=== PATIENT | male | born 1975 | race Caucasian/White ===

== ENCOUNTER 2016-05-28 13:55 | Emergency (ER) | payer OTHER ==
[2016-05-28] MEDS ORDERED: NS 0.9% 1000 ML* 1,000 ML IV ONE (14:37)
--- NOTE | 2016-05-28 14:54 | RAD ---
HISTORY: Chest pain COMPARISONS: January 10, 2015 VIEWS:1: Single frontal portable view of the chest at 2:30 PM FINDINGS: LINES AND TUBES: None. CARDIOMEDIASTINAL SILHOUETTE: The cardiomediastinal silhouette is normal for portable technique. PLEURA: The costophrenic angles are sharp. No pleural abnormalities are noted. LUNG PARENCHYMA: The lungs are clear. ABDOMEN: The upper abdomen is clear. There is no subphrenic gas. BONES AND SOFT TISSUES: No bone or soft tissue abnormalities are noted. IMPRESSION: NO ACTIVE CARDIOPULMONARY DISEASE.
[2016-05-28 14:59] LABS: Hematocrit 44 % (42-52); Mean Corpuscular HGB Conc 34 g/dl (31-36); Mean Corpuscular Hemoglobin 32 pg (27-31); Mean Corpuscular Volume 94 fL (80-94); Mean Platelet Volume 9 um3 (7.4-10.4); Red Blood Count 4.69 10^6/ul (4.0-5.4); Red Cell Distribution Width 13 % (10.5-15); White Blood Count 8.2 10^3/ul (3.5-10.8)
[2016-05-28 15:04] LABS: Urine Bilirubin Negative (Negative); Urine Glucose Negative (Negative); Urine Nitrite Negative (Negative)
[2016-05-28 15:13] LABS: Albumin 4.1 g/dL (3.2-5.2); C Reactive Protein 1.22 mg/L (< 5.00); Calcium 9.6 mg/dL (8.6-10.3); EGFR African American 113.2 (>60); Globulin 2.6 g/dL (2-4); Potassium 4.2 mmol/L (3.5-5.0); Total Bilirubin 0.6 mg/dL (0.2-1.0); Total Protein 6.7 g/dL (6.4-8.9)
[2016-05-28 15:15] LABS: Troponin I 0.02 ng/mL (<0.04)
[2016-05-28] MEDS ORDERED: HYDROcodone/ACETAMIN 5-325 MG* 1 TAB PO ONE (15:31)
[2016-05-28 15:55] VITALS: BP 127/85
[2016-05-28 15:57] LABS: TSH (Thyroid Stimulating Horm) 2.15 mcIU/mL (0.34-5.60)
--- NOTE | 2016-05-28 22:52 | ED ---
Gunner Shaikh Matthew, scribed for Collins Cross MD on 05/28/16 at 1523 . HPI Chest Pain - HPI Summary HPI Summary: A 40 y/o male presents to the ED with gradually worsening, constant left sided chest pain since a week ago. The pain is rated 2/10 in severity and he describes the pain as musculoskeletal. The pain started when the patient was changing the oil in his friend's car, and he felt a pop in his chest. He states that it felt like he pulled a muscle. Associated symptoms include headache, lightheadedness, dizziness, and SOB. The chest pain is worse with movement and touch. The patient took 400mg of ibuprofen last night for the pain. - History of Current Complaint Chief Complaint: EDChestWallPain Time Seen by Provider: 05/28/16 15:21 Hx Obtained From: Patient Onset/Duration: Started Weeks Ago, Atraumatic, Still Present Timing: Constant Initial Severity: Mild Current Severity: Mild Pain Intensity: 2 Pain Scale Used: 0-10 Numeric Chest Pain Location: Left Lateral Chest Pain Radiates: No Aggravating Factor(s): Movement Associated Signs and Symptoms: Positive: Chest Pain, Headaches, Dizziness, Shortness of Breath, Lightheadedness - Allergy/Home Medications Allergies/Adverse Reactions: Allergies Allergy/AdvReac Type Severity Reaction Status Date / Time No Known Allergies Allergy Verified 01/10/15 17:54 PMH/Surg Hx/FS Hx/Imm Hx Endocrine/Hematology History: Denies: Hx Diabetes Cardiovascular History: 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 open heart surgery as an for transposition of the great vessel ( NO IMPLANTS); Hx Anesthesia Reactions: No Infectious Disease History: No Infectious Disease History: Denies: Traveled Outside the [place] in Last 30 Days - Family History Known Family History: Negative: Cardiac Disease - Social History Alcohol Use: Weekly Alcohol Amount: LAST NIGHT Substance Use Type: Reports: None Hx Tobacco Use: Yes Smoking Status (MU): Current Every Day Smoker Type: Cigarettes Amount Used/How Often: 1/2 ppd Have You Smoked in the Last Year: Yes Review of Systems Constitutional: Negative Eyes: Negative ENT: Negative Positive: Chest Pain Positive: Shortness Of Breath Gastrointestinal: Negative Genitourinary: Negative Musculoskeletal: Negative Skin: Negative Neurological: Other - Dizziness, lightheadedness Positive: Headache Psychological: Normal All Other Systems Reviewed And Are Negative: Yes Physical Exam Triage Information Reviewed: Yes Vital Signs On Initial Exam: Initial Vitals Temp Pulse Resp BP Pulse Ox 98.6 F 82 20 124/89 98 05/28/16 13:58 05/28/16 13:58 05/28/16 13:58 05/28/16 13:58 05/28/16 13:58 Vital Signs Reviewed: Yes Appearance: Positive: Well-Appearing, No Pain Distress Skin: Positive: Warm, Skin Color Reflects Adequate Perfusion, Dry Head/Face: Positive: Normal Head/Face Inspection Eyes: Positive: Normal ENT: Positive: Normal ENT inspection Neck: Positive: Supple, Nontender Respiratory/Lung Sounds: Positive: Clear to Auscultation, Breath Sounds Present Cardiovascular: Positive: RRR - hyperkinetic heart sounds Abdomen Description: Positive: Nontender, Soft Bowel Sounds: Positive: Present Musculoskeletal: Positive: Normal Neurological: Positive: Normal Psychiatric: Positive: Normal, Affect/Mood Appropriate - José Coma Scale Coma Scale Total: 15 Diagnostics - Vital Signs Vital Signs Temp Pulse Resp BP Pulse Ox 05/28/16 15:00 66 17 127/71 97 05/28/16 14:30 71 15 114/68 96 05/28/16 14:13 74 17 96 05/28/16 14:10 121/73 05/28/16 13:58 98.6 F 82 20 124/89 98 - Laboratory Lab Results: Lab Results 05/28/16 05/28/16 05/28/16 Range/Units 14:45 14:45 14:45 WBC 8.2 (3.5-10.8) 10^3/ul RBC 4.69 (4.0-5.4) 10^6/ul Hgb 15.0 (14.0-18.0) g/dl Hct 44 (42-52) % MCV 94 (80-94) fL MCH 32 H (27-31) pg MCHC 34 (31-36) g/dl RDW 13 (10.5-15) % Plt Count 215 (150-450) 10^3/ul MPV 9 (7.4-10.4) um3 Neut % (Auto) 73.9 (38-83) % Lymph % (Auto) 13.8 L (25-47) % [place] % (Auto) 7.3 (1-9) % Eos % (Auto) 3.0 (0-6) % Baso % (Auto) 2.0 (0-2) % Absolute Neuts (auto) 6.1 (1.5-7.7) 10^3/ul Absolute Lymphs (auto) 1.1 (1.0-4.8) 10^3/ul Absolute Monos (auto) 0.6 (0-0.8) 10^3/ul Absolute Eos (auto) 0.2 (0-0.6) 10^3/ul Absolute Basos (auto) 0.2 (0-0.2) 10^3/ul Absolute Nucleated RBC 0 10^3/ul Nucleated RBC % 0 INR (Anticoag Therapy) 0.91 (0.89-1.11) APTT 28.1 (26.0-36.3) seconds D-Dimer, Quantitative < 200 (Less Than 230) ng/mL Sodium 137 (133-145) mmol/L Potassium 4.2 (3.5-5.0) mmol/L Chloride 106 (101-111) mmol/L Carbon Dioxide 26 (22-32) mmol/L Anion Gap 5 (2-11) mmol/L BUN 15 (6-24) mg/dL Creatinine 0.94 (0.67-1.17) mg/dL Est GFR ( Amer) 113.2 (>60) Est GFR (Non-Af Amer) 88.0 (>60) BUN/Creatinine Ratio 16.0 (8-20) Glucose 97 (70-100) mg/dL Lactic Acid (0.5-2.0) mmol/L Calcium 9.6 (8.6-10.3) mg/dL Magnesium 2.0 (1.9-2.7) mg/dL Total Bilirubin 0.60 (0.2-1.0) mg/dL AST 13 (13-39) U/L ALT 18 (7-52) U/L Alkaline Phosphatase 44 (34-104) U/L Total Creatine Kinase 64 (10-223) U/L CK-MB (CK-2) 1.6 (0.6-6.3) ng/mL Troponin I 0.02 (<0.04) ng/mL C-Reactive Protein 1.22 (< 5.00) mg/L B-Natriuretic Peptide ( - 100) pg/mL Total Protein 6.7 (6.4-8.9) g/dL Albumin 4.1 (3.2-5.2) g/dL Globulin 2.6 (2-4) g/dL Albumin/Globulin Ratio 1.6 (1-3) Lipase 15 (11.0-82.0) U/L TSH Pending Urine Color Urine Appearance Urine pH (5-9) Ur Specific [place] (1.010-1.030) Urine Protein (Negative) Urine Ketones (Negative) Urine Blood (Negative) Urine Nitrate (Negative) Urine Bilirubin (Negative) Urine Urobilinogen (Negative) Ur Leukocyte Esterase (Negative) Urine Glucose (Negative) Urine Ascorbic Acid (Negative) 05/28/16 05/28/16 05/28/16 Range/Units 14:45 14:45 14:55 WBC (3.5-10.8) 10^3/ul RBC (4.0-5.4) 10^6/ul Hgb (14.0-18.0) g/dl Hct (42-52) % MCV (80-94) fL MCH (27-31) pg MCHC (31-36) g/dl RDW (10.5-15) % Plt Count (150-450) 10^3/ul MPV (7.4-10.4) um3 Neut % (Auto) (38-83) % Lymph % (Auto) (25-47) % [place] % (Auto) (1-9) % Eos % (Auto) (0-6) % Baso % (Auto) (0-2) % Absolute Neuts (auto) (1.5-7.7) 10^3/ul Absolute Lymphs (auto) (1.0-4.8) 10^3/ul Absolute Monos (auto) (0-0.8) 10^3/ul Absolute Eos (auto) (0-0.6) 10^3/ul Absolute Basos (auto) (0-0.2) 10^3/ul Absolute Nucleated RBC 10^3/ul Nucleated RBC % INR (Anticoag Therapy) (0.89-1.11) APTT (26.0-36.3) seconds D-Dimer, Quantitative (Less Than 230) ng/mL Sodium (133-145) mmol/L Potassium (3.5-5.0) mmol/L Chloride (101-111) mmol/L Carbon Dioxide (22-32) mmol/L Anion Gap (2-11) mmol/L BUN (6-24) mg/dL Creatinine (0.67-1.17) mg/dL Est GFR ( Amer) (>60) Est GFR (Non-Af Amer) (>60) BUN/Creatinine Ratio (8-20) Glucose (70-100) mg/dL Lactic Acid 1.0 (0.5-2.0) mmol/L Calcium (8.6-10.3) mg/dL Magnesium (1.9-2.7) mg/dL Total Bilirubin (0.2-1.0) mg/dL AST (13-39) U/L ALT (7-52) U/L Alkaline Phosphatase (34-104) U/L Total Creatine Kinase (10-223) U/L CK-MB (CK-2) (0.6-6.3) ng/mL Troponin I (<0.04) ng/mL C-Reactive Protein (< 5.00) mg/L B-Natriuretic Peptide 133 H ( - 100) pg/mL Total Protein (6.4-8.9) g/dL Albumin (3.2-5.2) g/dL Globulin (2-4) g/dL Albumin/Globulin Ratio (1-3) Lipase (11.0-82.0) U/L TSH Urine Color Yellow Urine Appearance Clear Urine pH 5.0 (5-9) Ur Specific [place] 1.021 (1.010-1.030) Urine Protein Negative (Negative) Urine Ketones Negative (Negative) Urine Blood Negative (Negative) Urine Nitrate Negative (Negative) Urine Bilirubin Negative (Negative) Urine Urobilinogen Negative (Negative) Ur Leukocyte Esterase Negative (Negative) Urine Glucose Negative (Negative) Urine Ascorbic Acid * H (Negative) Result Diagrams: 05/28/16 14:45 05/28/16 14:45 Lab Statement: Any lab studies that have been ordered have been reviewed, and results considered in the medical decision making process. - Radiology CXR Xray Interpretation: No Acute Changes - No Active Cardiopulonary disease Radiology Interpretation Completed By: Radiologist - EKG 14:00 Cardiac Rate: NL - 75 bpm EKG Rhythm: Sinus Rhythm EKG Interpretation: ST depression in anterior leads EKG Comparison: No Significant Change - 01/10/15 Chest Pain Course/Dx - Course Assessment/Plan: A 40 y/o male presents to the ED with gradually worsening, constant left sided chest pain since a week ago. Labs were reviewed and the troponin was 0.02. CXR shows no active cardiopulmonary disease. EKG shows NSR at [address] depression in the anterior leads and no significant change since 01/10/15. The patient will be discharged home and follow-up with his PCP. - Diagnoses Provider Diagnoses: Chest wall pain Discharge - Discharge Plan Condition: Stable Disposition: HOME Prescriptions: HYDROcodone/ACETAMIN 5-325 MG* [[place] 5-325 TAB*] 1 tab PO Q6H PRN #20 tab MDD 4 PRN Reason: Pain Patient Education Materials: Hydrocodone/Acetaminophen (By mouth), Chest Wall Pain (ED) Referrals: Taya Singh MD [Primary Care Provider] - 2 Days Additional Instructions: Please follow-up with your primary care physician. The documentation as recorded by the Gunner erazo Matthew accurately reflects the service I personally performed and the decisions made by , Collins Cross MD.
== END 2016-05-28 15:54 | disposition home or self-care (01) ==
LOC: ED 13:55
DX: R07.89 Other chest pain (principal); I27.2 Other secondary pulmonary hypertension; Q24.9 Congenital malformation of heart, unspecified; X58.XXXA Exposure to other specified factors, initial encounter; Y92.9 Unspecified place or not applicable; F17.210 Nicotine dependence, cigarettes, uncomplicated
CPT/HCPCS: 36415; 71010; 80053; 81003; 82550; 82553; 83605; 83690; 83735; 83880; 84443; 84484; 85025; 85379; 85610; 85730; 86140; 93005; 96360; 99283

== ENCOUNTER 2016-07-03 09:43 | Inpatient (IN) | payer OTHER ==
[2016-07-03 10:27] LABS: Add Diff/Slide Review? Slide Review Added; Comments Flag Yes; Hematocrit 45 % (42-52); Hemoglobin 15.3 g/dl (14.0-18.0); Mean Corpuscular HGB Conc 34 g/dl (31-36); Mean Corpuscular Hemoglobin 32 pg (27-31); Mean Corpuscular Volume 93 fL (80-94); Mean Platelet Volume 8 um3 (7.4-10.4); Red Blood Count 4.81 10^6/ul (4.0-5.4); Red Cell Distribution Width 13 % (10.5-15); White Blood Count 7.2 10^3/ul (3.5-10.8)
[2016-07-03] MEDS: NS 0.9% 1000 ML* 2,000 ML IV ONE ×2 (10:30→13:19)
[2016-07-03 11:07] LABS: BUN/Creatinine Ratio 14.2 (8-20); C Reactive Protein 20.23 mg/L (< 5.00); Calcium 9.1 mg/dL (8.6-10.3); EGFR African American 91.5 (>60); EGFR Non-African American 71.2 (>60); Globulin 2.8 g/dL (2-4); Total Bilirubin 0.4 mg/dL (0.2-1.0); Total Protein 6.8 g/dL (6.4-8.9)
--- NOTE | 2016-07-03 11:08 | RAD ---
INDICATION: Tachycardia. History of congenital heart disease COMPARISON: May 28, 2016 TECHNIQUE: An AP portable view obtained at 1043 hours is submitted. FINDINGS: Bones/Soft Tissues: There are no acute bony findings. Cardiomediastinal: The cardiomediastinal silhouette is normal. Lungs: There are no infiltrates. Pleura: There are no pleural effusions. Other: None IMPRESSION: NO ACTIVE DISEASE
[2016-07-03 11:15] LABS: TSH (Thyroid Stimulating Horm) 2.43 mcIU/mL (0.34-5.60)
[2016-07-03 12:05] LABS: Magnesium 1.9 mg/dL (1.9-2.7); Potassium 4.4 mmol/L (3.5-5.0)
[2016-07-03] MEDS ORDERED: Ondansetron INJ* 2 MG/ML VIAL IV ONE (13:10)
[2016-07-03] MEDS ORDERED: Ketorolac INJ* 30 MG/ML 1 ML VIAL IV ONE (13:10)
[2016-07-03] MEDS ORDERED: Nicotine Inhaler* 10 MG AMP INH PRN (15:28)
[2016-07-03] MEDS ORDERED: Nicotine GUM* 2 MG PO PRN (15:28)
[2016-07-03] MEDS: NS 0.9% 1000 ML* 1,000 ML IV SCH (15:41)
--- NOTE | 2016-07-03 16:01 | ED ---
Gunner Shaikh Matthew, scribed for Ismael Ramirez MD on 07/03/16 at 1156 . Dizziness - HPI Summary HPI Summary: A 40 y/o male presents to the ED with dizziness/lightheadedness since hours ago. The patient has been feeling gradually worse since 2 days ago. The patient went to his PCP this morning and was referred to the ED. Associated symptoms include fever, chills, cough, right ear pain, chest congestion, SOB, headache, and diffuse body aches. The patient denies chest pain. He takes Lexapro and medication for HLD. The patient states that his right foot is falling asleep, but also states this happens chronically especially when he's ill. 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 - History Of Current Complaint Chief Complaint: EDDizziness Stated Complaint: RAPID HEART RATE Time Seen by Provider: 07/03/16 10:09 Hx Obtained From: Patient Onset/Duration: Still Present Timing: Constant Severity Initially: Moderate Severity Currently: Moderate Character: Lightheaded, Dizzy Associated Signs And Symptoms: Positive: SOB, Fever, Chills, Other: - Chest Congestion, Headache, Diffuse body aches, Right Ear Pain. 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 open heart surgery as an for transposition of the great vessel ( NO IMPLANTS); Hx Anesthesia Reactions: No Infectious Disease History: No Infectious Disease History: Denies: Traveled Outside the [place] in Last 30 Days - Family History Known Family History: Negative: Cardiac Disease - Social History Alcohol Use: Weekly Alcohol Amount: LAST NIGHT Substance Use Type: Reports: None Hx Tobacco Use: Yes Smoking Status (MU): Current Every Day Smoker Type: Cigarettes Amount Used/How Often: 1/2 ppd Have You Smoked in the Last Year: Yes Review of Systems Positive: Fever, Chills Eyes: Negative ENT: Negative Cardiovascular: Negative Negative: Chest Pain Respiratory: Other - Chest Congestion Positive: Cough Gastrointestinal: Negative Genitourinary: Negative Positive: Myalgia - Diffuse body aches Skin: Negative Positive: Headache Psychological: Normal All Other Systems Reviewed And Are Negative: Yes Physical Exam Triage Information Reviewed: Yes Vital Signs On Initial Exam: Initial Vitals Temp Pulse Resp BP Pulse Ox 99.6 F 134 18 118/73 99 07/03/16 09:56 07/03/16 09:56 07/03/16 09:56 07/03/16 09:56 07/03/16 09:56 Vital Signs Reviewed: Yes Appearance: Positive: Ill-Appearing - mildly Skin: Positive: Pale Eyes: Positive: EOMI, MEHRDAD ENT: Positive: Normal ENT inspection Neck: Positive: Supple, Nontender Respiratory/Lung Sounds: Positive: Clear to Auscultation, Breath Sounds Present Cardiovascular: Positive: Tachycardia Abdomen Description: Positive: Nontender, Soft Bowel Sounds: Positive: Present Musculoskeletal: Positive: Strength/ROM Intact Neurological: Positive: Alert, Oriented to Person Place, Time Psychiatric: Positive: Affect/Mood Appropriate Diagnostics - Vital Signs Vital Signs Temp Pulse Resp BP Pulse Ox 07/03/16 09:56 99.6 F 134 18 118/73 99 - Laboratory Lab Results: Lab Results 07/03/16 07/03/16 07/03/16 Range/Units 10:12 10:12 10:12 WBC 7.2 (3.5-10.8) 10^3/ul RBC 4.81 (4.0-5.4) 10^6/ul Hgb 15.3 (14.0-18.0) g/dl Hct 45 (42-52) % MCV 93 (80-94) fL MCH 32 H (27-31) pg MCHC 34 (31-36) g/dl RDW 13 (10.5-15) % Plt Count 162 (150-450) 10^3/ul MPV 8 (7.4-10.4) um3 Neut % (Auto) 62.0 (38-83) % Lymph % (Auto) 20.2 L (25-47) % [place] % (Auto) 17.1 H (1-9) % Eos % (Auto) 0.4 (0-6) % Baso % (Auto) 0.3 (0-2) % Absolute Neuts (auto) 4.5 (1.5-7.7) 10^3/ul Absolute Lymphs (auto) 1.5 (1.0-4.8) 10^3/ul Absolute Monos (auto) 1.2 H (0-0.8) 10^3/ul Absolute Eos (auto) 0 (0-0.6) 10^3/ul Absolute Basos (auto) 0 (0-0.2) 10^3/ul Absolute Nucleated RBC 0.01 10^3/ul Nucleated RBC % 0.1 INR (Anticoag Therapy) 0.98 (0.89-1.11) APTT 27.7 (26.0-36.3) seconds D-Dimer, Quantitative < 200 (Less Than 230) ng/mL Sodium 134 (133-145) mmol/L Potassium 4.4 (3.5-5.0) mmol/L Chloride 104 (101-111) mmol/L Carbon Dioxide 19 L (22-32) mmol/L Anion Gap 11 (2-11) mmol/L BUN 16 (6-24) mg/dL Creatinine 1.13 (0.67-1.17) mg/dL Est GFR ( Amer) 91.5 (>60) Est GFR (Non-Af Amer) 71.2 (>60) BUN/Creatinine Ratio 14.2 (8-20) Glucose 118 H (70-100) mg/dL Lactic Acid (0.5-2.0) mmol/L Calcium 9.1 (8.6-10.3) mg/dL Magnesium 1.9 (1.9-2.7) mg/dL Total Bilirubin 0.40 (0.2-1.0) mg/dL AST 18 (13-39) U/L ALT 15 (7-52) U/L Alkaline Phosphatase 45 (34-104) U/L Total Creatine Kinase 48 (10-223) U/L CK-MB (CK-2) 0.4 L (0.6-6.3) ng/mL Troponin I 0.00 (<0.04) ng/mL C-Reactive Protein 20.23 H (< 5.00) mg/L B-Natriuretic Peptide ( - 100) pg/mL Total Protein 6.8 (6.4-8.9) g/dL Albumin 4.0 (3.2-5.2) g/dL Globulin 2.8 (2-4) g/dL Albumin/Globulin Ratio 1.4 (1-3) Lipase 12 (11.0-82.0) U/L TSH 2.43 (0.34-5.60) mcIU/mL Influenza A (Rapid) (Negative) Influenza B (Rapid) (Negative) 07/03/16 07/03/16 07/03/16 Range/Units 10:12 10:12 10:24 WBC (3.5-10.8) 10^3/ul RBC (4.0-5.4) 10^6/ul Hgb (14.0-18.0) g/dl Hct (42-52) % MCV (80-94) fL MCH (27-31) pg MCHC (31-36) g/dl RDW (10.5-15) % Plt Count (150-450) 10^3/ul MPV (7.4-10.4) um3 Neut % (Auto) (38-83) % Lymph % (Auto) (25-47) % [place] % (Auto) (1-9) % Eos % (Auto) (0-6) % Baso % (Auto) (0-2) % Absolute Neuts (auto) (1.5-7.7) 10^3/ul Absolute Lymphs (auto) (1.0-4.8) 10^3/ul Absolute Monos (auto) (0-0.8) 10^3/ul Absolute Eos (auto) (0-0.6) 10^3/ul Absolute Basos (auto) (0-0.2) 10^3/ul Absolute Nucleated RBC 10^3/ul Nucleated RBC % INR (Anticoag Therapy) (0.89-1.11) APTT (26.0-36.3) seconds D-Dimer, Quantitative (Less Than 230) ng/mL Sodium (133-145) mmol/L Potassium (3.5-5.0) mmol/L Chloride (101-111) mmol/L Carbon Dioxide (22-32) mmol/L Anion Gap (2-11) mmol/L BUN (6-24) mg/dL Creatinine (0.67-1.17) mg/dL Est GFR ( Amer) (>60) Est GFR (Non-Af Amer) (>60) BUN/Creatinine Ratio (8-20) Glucose (70-100) mg/dL Lactic Acid 1.2 (0.5-2.0) mmol/L Calcium (8.6-10.3) mg/dL Magnesium (1.9-2.7) mg/dL Total Bilirubin (0.2-1.0) mg/dL AST (13-39) U/L ALT (7-52) U/L Alkaline Phosphatase (34-104) U/L Total Creatine Kinase (10-223) U/L CK-MB (CK-2) (0.6-6.3) ng/mL Troponin I (<0.04) ng/mL C-Reactive Protein (< 5.00) mg/L B-Natriuretic Peptide 93 ( - 100) pg/mL Total Protein (6.4-8.9) g/dL Albumin (3.2-5.2) g/dL Globulin (2-4) g/dL Albumin/Globulin Ratio (1-3) Lipase (11.0-82.0) U/L TSH (0.34-5.60) mcIU/mL Influenza A (Rapid) Negative (Negative) Influenza B (Rapid) Negative (Negative) Result Diagrams: 07/03/16 10:12 07/03/16 10:12 Lab Statement: Any lab studies that have been ordered have been reviewed, and results considered in the medical decision making process. - Radiology CXR Xray Interpretation: No Acute Changes - IMPRESSION: NO ACTIVE DISEASE Radiology Interpretation Completed By: Radiologist - EKG 09:59 Cardiac Rate: Tachycardia EKG Interpretation: Junctional Tachycardia; Flipped T Waves in the anterior leads and III 11:34 Cardiac Rate: NL - 69 bpm Ectopy: None EKG Interpretation: RVH; Flipped T Waves in the anterior leads Dizzy Course/Dx - Course Assessment/Plan: DISCUSSED WITH DR GANT. WILL GET ECHO. ADMIT HOSPITALIST STABLE. - Diagnoses Provider Diagnoses: JUNCTIONAL TACHYCARDIA - Provider Notifications Discussed Care Of Patient with: Dr. Gant (Cardologist) at 12:00 -- Notified of patient's history and is not concerned over the patient's second EKG. He recommends the repeat troponin be draw in 6 hours and the patient receive an echocardiogram. Discharge - Discharge Plan Condition: Stable Disposition: ADMITTED TO [facility] The documentation as recorded by the Gunner erazo Matthew accurately reflects the service I personally performed and the decisions made by me, Ismael Ramirez MD.
[2016-07-03] MEDS: Nicotine PATCH 7 MG/24 HR* PATCH TRANSDERM SCH (16:55)
[2016-07-03] MEDS: Nicotine Patch Removal NOTE PATCH OFF SCH (22:33)
--- NOTE | 2016-07-04 00:06 | HP ---
HISTORY AND PHYSICAL: DATE OF ADMISSION: 07/03/16 PRIMARY CARE PHYSICIAN: Dr. Singh. ATTENDING PHYSICIAN: Dr. Antonia Roy* (dictation provided by Monik Valera NP) CHIEF COMPLAINT: Dizziness and lightheadedness. HISTORY OF PRESENT ILLNESS: Mr. Gibson is a 40-year-old male with a past medical history of transposition of the great arteries as well as back pain and depression, who presents today to the hospital with concern for dizziness and lightheadedness. Mr. Gibson states that he became unwell on Sunday. At that time, he developed muscle aches and headaches. He felt that he probably had a cold or the flu. Through the night, he slept very poorly due to hot and cool flashes. He states at times, he had soaked the sheets with sweat and suspected that he have a fever though he did not check his temperature. He does report some mild cough, but states he "tried not to cough" because it made his headache worse. He also reports some mild shortness of breath. He continued to have these symptoms through Sunday where he spent most of the day lying on the couch. Again, he had trouble sleeping last night due to hot and cold flashes. By Sunday, he went in to see his primary care physician, Dr. Singh, and stated that he was so well that he "could hardly stand up." He denies any nausea, vomiting, diarrhea, or abdominal pain. In the emergency room, Mr. Gibson had a normal white blood cell count. He is afebrile. He was initially tachycardic with a heart rate running to the 130s with the concern for junctional tachycardia. He was given fluids and he did convert to a sinus rhythm with a heart rate in the 60s. PAST MEDICAL HISTORY: 1. 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 2. Back pain. 3. Depression. MEDICATIONS: 1. Lexapro 5 mg p.o. daily. 2. Hydrocodone/acetaminophen 5/325 mg p.r.n. (checked I-STOP. No record of this prescription noted there). 3. Simvastatin 5 mg p.o. daily. ALLERGIES: No known drug allergies. FAMILY HISTORY: The patient reports that his mother is still alive and has no acute health issues that he is aware of. His father 18 years ago of leukemia. SOCIAL HISTORY: The patient is a continued smoker, but he states that he is down to about 2 cigarettes per day. He drinks alcohol most days. States it is usually beer. He has never had any history of withdrawal symptoms per his report. No report of drug abuse. He lives alone, has 3 children, states that his sister, Carmel, would be the healthcare proxy. REVIEW OF SYSTEMS: Constitutional: No fevers. Positive for hot and cold flashes with night sweats. Cardiac: No chest pain. No edema. The patient is able to lie flat in bed easily with no shortness of breath or chest pain. Respiratory: Positive for mild cough. Mild cough, no hemoptysis, positive for shortness of breath. GI: No nausea, vomiting, diarrhea, or abdominal pain. : No gross hematuria or dysuria. Neuro: No focal weakness or sensory loss. Eyes: No visual complaints. ENT: No dysphagia. Musculoskeletal: Positive for arthralgias and myalgias. Skin: No rashes or lesions. Psych: No depression or anxiety. PHYSICAL EXAMINATION GENERAL: Mr. Gibson is lying up in the bed. He appears tired, but is in no acute distress. VITAL SIGNS: Temperature 99.1, heart rate 61, respiratory rate 18, O2 saturation is 97% on room air, blood pressure 114/63. HEART: S1, S2. No murmur, rubs, or gallop appreciated today and regular. LUNGS: Clear to auscultation bilaterally with no accessory muscle use and good aeration. ABDOMEN: Soft, nontender with bowel sounds positive x4. EXTREMITIES: No cyanosis or edema. SKIN: Intact. NEUROLOGIC: He is alert. He is oriented x3. He moves all extremities equally. There is no facial asymmetry or focal weakness. Extraocular movements are intact. LABORATORY DATA/DIAGNOSTIC STUDIES: WBC 7.2, hemoglobin 15.3, hematocrit 45, platelet count 162, INR 0.98. Sodium 134, potassium 4.4, chloride 104, serum bicarbonate 19, BUN 16, creatinine 1.13, glucose 118, lactic acid 1.2, troponin 0.00, CRP 20.23. Flu swab is negative. Chest x-ray shows no acute process. Original EKG on arrival shows a junctional tachycardia with heart rate of 130s and he is now converted to sinus rhythm with the heart rate in the 60s to 70s. ASSESSMENT: Mr. Gibson is a 40-year-old male with a past medical history of transposition of the great arteries with surgeries x2 as a child as well as back pain who presents today to the hospital with concern for dizziness and lightheadedness with report of 2 days of arthralgias and myalgias and headache. In the emergency room, he was found to have a junctional tachycardia, now converted to sinus rhythm our plans are for observation in the hospital for the followin. Dizziness and lightheadedness. Mr. Gibson describes symptoms consistent with a viral infection. His flu swab is negative. He has a normal chest x- ray. He has no leukocytosis. He is not currently tachycardic. He is afebrile. His lactic acid is normal. It could be that his dizziness and lightheadedness was related to junctional tachycardia, thought I think this was less likely. Plan will be to continue hydration for him as well as ibuprofen and Tylenol as needed for discomfort. Plan to check orthostatic vital signs in the morning. 2. Junctional tachycardia. The patient has converted to normal sinus rhythm. We will continue with IV hydration. He already had a transthoracic echocardiogram and results are pending. The patient will have any EKG with any further dizziness, lightheadedness, or any chest pain. He will be monitored on telemetry unit. I will repeat a troponin, the first was negative. 3. History of depression. The patient will have Celexa on hold as it is not formulary. 4. Back pain. The patient has hydrocodone listed on his list of home medications but I do not see where that was prescribed in I-STOP. I am planning to not provide that as I do not see where that has been ordered outpatient unless his pain is more severe. At this time, he is pain free. 5. Smoking cessation. The patient will have nicotine replacement available. Smoking cessation and counseling was offered. 6. Alcohol abuse. The patient is a daily drinker. He states he has never had any trouble with withdrawal symptoms in the past. At this time, I do not think it is necessary to order a WAM protocol, but we will use that as necessary based on clinical course. 7. DVT prophylaxis with early mobility. 8. Disposition to telemetry unit. TIME SPENT: Approximately 60 minutes were spent on admission of this patient; more than half time spent with the patient at the bedside reviewing the events leading up to this hospitalization, performing the physical examination, and reviewing the plan of care. MONIK VALERA NP CC: Dr. Singh* [id number]/[facility] #: [id number] RAKESH
[2016-07-04] MEDS: NS 0.9% 1000 ML* 1,000 ML IV SCH ×2 (00:32→11:03)
[2016-07-04] MEDS: Acetaminophen TAB* 325 MG PO PRN ×2 (00:32→08:07)
[2016-07-04 06:54] LABS: Urine Bilirubin Negative (Negative); Urine Glucose Negative (Negative); Urine Nitrite Negative (Negative)
[2016-07-04] MEDS: Nicotine PATCH 7 MG/24 HR* PATCH TRANSDERM SCH (08:08)
--- NOTE | 2016-07-04 11:43 | ECHO ---
Patient: HELEN PICKETT [facility] Rec#: [id number] : 1975 Date: 07/03/2016 Age: 40y Height: 182.88 cm / 72.0 in Weight: 83.91 kg / 184.9 lbs Sex: M BSA: 2.06 Room#: ED-16 Admit Date#: 07/03/2016 Type: Inpatient Referring: Ismael Ramirez MD Reading: Gianfranco Gant MD Transportation Worker: Magy Doyle CONNER CC: Taya Singh MD Transthoracic Echocardiogram Indication: Dyspnea, tachycardia BP: 134/71 HR: 68 Rhythm: NSR Findings History: S/P Norberto-Hamion and Mustard procedures, Transposition of the Great Vessels. Technical Comments: The study quality is good. Completed at 1512. Left Ventricle: The left ventricular chamber size is normal. Septal wall hypertrophy is observed. Left ventricular systolic function is at the lower limits of normal. LV is some what small but with low normal function The estimated ejection fraction is 50-55%. There is no consistent Doppler evidence of clinically significant diastolic dysfunction. Left Atrium: The left atrium is not well visualized. Right Ventricle: The right ventricle wall thickness is moderately increased. The right ventricle is moderately dilated. The right ventricular global systolic function is mildly reduced. Flattened in systole and diastole consistent with right ventricular pressure and volume overload. Right Atrium: The right atrium is moderate to severely dilated. Aortic Valve: The aortic valve structure is not well visualized. There is no evidence of aortic regurgitation. There is no evidence of aortic stenosis. Mitral Valve: The mitral valve leaflets are mildly thickened. There is mild mitral regurgitation. There is no evidence of mitral stenosis. Tricuspid Valve: The tricuspid valve leaflets are mildly thickened. There is moderate tricuspid regurgitation. There is evidence of moderate pulmonary hypertension. There is no tricuspid stenosis. Pulmonic Valve: The pulmonic valve appears normal. There is no evidence of pulmonic regurgitation. There is no pulmonic stenosis. Pericardium: There is no significant pericardial effusion. Aorta: The ascending aorta is not well visualized. There is no dilatation of the aortic arch. There is no dilation of the aortic root. 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 Pulmonary Artery: There is transposition of the great vessels. Which has been corrected surgically. Venous: The inferior vena cava appears normal in size. There is a greater than 50% respiratory change in the inferior vena cava dimension. Conclusions Patient with history of Transposition of Great Vessels (TGA) S/P Mustard Procedure with atrial baffle Left ventricular systolic function is at the lower limits of normal. LV is some what small but with low normal function Septal wall hypertrophy is observed. The estimated ejection fraction is 50-55%. The right ventricle wall thickness is moderately increased. The right ventricle is moderately dilated. The right ventricular global systolic function is mildly reduced. Flattened in systole and diastole consistent with right ventricular pressure and volume overload. The right atrium is moderate to severely dilated. There is no evidence of aortic regurgitation. There is mild mitral regurgitation. The tricuspid valve leaflets are mildly thickened. There is no evidence of pulmonic regurgitation. There is no significant pericardial effusion. The ascending aorta is not well visualized. Atrial baffle appears top function normally Compared to report from 09/17/13, there is little change Measurements Name Value Normal Range RVIDd (AP) 2D 3.3 cm (0.9 - 2.6) RVDdMajor (2D) 5.7 cm (2.2 - 4.4) RAd ISD 4CH 6.2 cm (3.4 - 4.9) RA (A4C)W 5.7 cm (2.9 - 4.6) IVSd (2D) 1.1 cm (0.6 - 1) LVPWd (2D) 0.9 cm (0.6 - 1) LVIDd (2D) 4.4 cm (3.6 - 5.4) LVIDs (2D) 2.9 cm - LV FS (2D) 33 % (25 - 45) Aortic Annulus 1.4 cm (1.4 - 2.6) Ao root diameter (2D) 2.3 cm (2.1 - 3.5) Aortic arch 2.7 cm (1.8 - 3.4) Descending Ao 1 cm - Name Value Normal Range MV E-wave Vmax 1.2 m/sec - MV deceleration time 334 msec - MV A-wave Vmax 0.8 m/sec - MV E:A ratio 1.5 ratio - LV septal e' Vmax 0.08 m/sec - LV lateral e' Vmax 0.09 m/sec - LV E:e' septal ratio 15 ratio - LV E:e' lateral ratio 13.33 ratio - Name Value Normal Range AV Vmax 1.4 m/sec - AV VTI 24.5 cm - AV peak gradient 7.24 mmHg - AV mean gradient 4.44 mmHg - LVOT Vmax 0.8 m/sec - LVOT VTI 19.7 cm - LVOT peak gradient 2.87 mmHg - LVOT mean gradient 1.42 mmHg - Name Value Normal Range TR Vmax 3.7 m/sec - TR peak gradient 56 mmHg - RAP 3 mmHg - RVSP 59 mmHg - IVC diameter 2 cm - Name Value Normal Range PV Vmax 0.8 m/sec - PV peak gradient 2.7 mmHg -
[2016-07-04] MEDS ORDERED: Albuterol/Ipratropium NEB.SOL* Albuterol 2.5 MG/Ipratropium 0.5 MG 3 ML INH PRN (11:47)
--- NOTE | 2016-07-04 12:07 | RAD ---
HISTORY: Hypoxia COMPARISONS: July 03, 2016 VIEWS:1: Single frontal portable view of the chest at 11:45 AM FINDINGS: LINES AND TUBES: None. CARDIOMEDIASTINAL SILHOUETTE: The cardiomediastinal silhouette is normal for portable technique. PLEURA: The costophrenic angles are sharp. No pleural abnormalities are noted. LUNG PARENCHYMA: There has been interval development of confluent alveolar opacification within the right lower lung near the cardiophrenic angle ABDOMEN: The upper abdomen is clear. There is no subphrenic gas. BONES AND SOFT TISSUES: No bone or soft tissue abnormalities are noted. IMPRESSION: RIGHT LOWER LUNG CONSOLIDATION. RECOMMEND FOLLOW-UP UNTIL RESOLUTION TO EXCLUDE UNDERLYING PULMONARY PARENCHYMAL PATHOLOGY report
--- NOTE | 2016-07-04 14:27 | PN ---
Subjective Date of Service: 07/04/16 Interval History: Patient reports he continues to feel unwell with malaise, ROSARIO, cough, nasal congestion. Occasional productive cough with clear thick sputum. Feels slightly feverish. Mild nausea. no vomiting. No sob or CP. Reports his dizziness is gone today. Objective Active Medications: Acetaminophen (Tylenol Tab*) 650 mg PO Q6H PRN PRN Reason: FEVER/PAIN Last Admin: 07/04/16 08:07 Dose: 650 mg Albuterol/Ipratropium (Duoneb (Albuterol 2.5 Mg/Ipratropium 0.5 Mg)) 1 neb INH Q4H PRN PRN Reason: SOB/WHEEZING Last Admin: 07/04/16 11:57 Dose: 1 neb Ceftriaxone Sodium 1,000 mg/ (Sodium Chloride) 50 mls @ 200 mls/hr IVPB Q24H COUNT INCLUDES THE [facility] Nicotine (Nicotine Inhaler*) 10 mg INH Q2H PRN PRN Reason: CRAVING Nicotine (Nicotine Patch 7 Mg/24 Hr*) 1 patch TRANSDERM 0800 COUNT INCLUDES THE [facility] Last Admin: 07/04/16 08:08 Dose: Not Given Nicotine Polacrilex (Nicotine Gum*) 2 mg PO Q2H PRN PRN Reason: CRAVING Ondansetron HCl (Zofran Inj*) 4 mg IV Q4H PRN PRN Reason: NAUSEA Pharmacy Profile Note (Nicotine Patch Removal Note*) 1 note PATCH OFF 2100 COUNT INCLUDES THE [facility] Last Admin: 07/03/16 22:33 Dose: Not Given Vital Signs 07/03/16 07/03/16 07/03/16 14:28 14:30 14:44 Temperature Pulse Rate 63 61 55 Respiratory 18 16 14 Rate Blood Pressure 108/47 (mmHg) O2 Sat by Pulse 97 97 97 Oximetry 07/03/16 07/03/16 07/03/16 14:55 20:00 20:13 Temperature 99.1 F 98.5 F Pulse Rate 56 58 Respiratory 18 16 16 Rate Blood Pressure 114/63 105/58 (mmHg) O2 Sat by Pulse 97 98 Oximetry 07/03/16 07/04/16 07/04/16 23:40 03:48 07:35 Temperature 99.8 F 99.2 F 99.2 F Pulse Rate 66 51 63 Respiratory 16 16 16 Rate Blood Pressure 121/61 104/45 118/66 (mmHg) O2 Sat by Pulse 94 93 91 Oximetry 07/04/16 07/04/16 07/04/16 07:37 07:38 11:26 Temperature 99.2 F Pulse Rate 60 66 55 Respiratory 20 Rate Blood Pressure 125/72 122/64 129/55 (mmHg) O2 Sat by Pulse 94 93 90 Oximetry 07/04/16 11:59 Temperature Pulse Rate 55 Respiratory 15 Rate Blood Pressure (mmHg) O2 Sat by Pulse 96 Oximetry Oxygen Devices in Use Now: Nasal Cannula - 2L NC Appearance: 40 yo male appears mildly ill A+Ox3 in NAD. Eyes: No Scleral Icterus, PERRLA Ears/Nose/Mouth/Throat: NL Teeth, Lips, Gums, Mucous Membranes Moist Neck: NL Appearance and Movements; NL JVP Respiratory: Symmetrical Chest Expansion and Respiratory Effort, - - RLL mild crackles, good aeration throughout Cardiovascular: NL Sounds; No Murmurs; No JVD, RRR, No Edema Abdominal: NL Sounds; No Tenderness; No Distention Lymphatic: No Cervical Adenopathy Extremities: No Edema Skin: No Rash or Ulcers, No Nodules or Sclerosis Neurological: Alert and Oriented x 3, NL Sensation, NL Gait, NL Muscle Strength and Tone Lines/Tubes/Other Access: Clean, Dry and Intact Peripheral IV Nutrition: Taking PO's - minimal Result Diagrams: 07/03/16 10:12 07/03/16 10:12 Additional Lab and Data: Lab Results 07/03/16 07/03/16 07/03/16 Range/Units 10:12 10:12 10:12 WBC 7.2 (3.5-10.8) 10^3/ul RBC 4.81 (4.0-5.4) 10^6/ul Hgb 15.3 (14.0-18.0) g/dl Hct 45 (42-52) % MCV 93 (80-94) fL MCH 32 H (27-31) pg MCHC 34 (31-36) g/dl RDW 13 (10.5-15) % Plt Count 162 (150-450) 10^3/ul MPV 8 (7.4-10.4) um3 Neut % (Auto) 62.0 (38-83) % Lymph % (Auto) 20.2 L (25-47) % Jerome % (Auto) 17.1 H (1-9) % Eos % (Auto) 0.4 (0-6) % Baso % (Auto) 0.3 (0-2) % Absolute Neuts (auto) 4.5 (1.5-7.7) 10^3/ul Absolute Lymphs (auto) 1.5 (1.0-4.8) 10^3/ul Absolute Monos (auto) 1.2 H (0-0.8) 10^3/ul Absolute Eos (auto) 0 (0-0.6) 10^3/ul Absolute Basos (auto) 0 (0-0.2) 10^3/ul Absolute Nucleated RBC 0.01 10^3/ul Nucleated RBC % 0.1 INR (Anticoag Therapy) 0.98 (0.89-1.11) APTT 27.7 (26.0-36.3) seconds D-Dimer, Quantitative < 200 (Less Than 230) ng/mL Sodium 134 (133-145) mmol/L Potassium 4.4 (3.5-5.0) mmol/L Chloride 104 (101-111) mmol/L Carbon Dioxide 19 L (22-32) mmol/L Anion Gap 11 (2-11) mmol/L BUN 16 (6-24) mg/dL Creatinine 1.13 (0.67-1.17) mg/dL Est GFR ( Amer) 91.5 (>60) Est GFR (Non-Af Amer) 71.2 (>60) BUN/Creatinine Ratio 14.2 (8-20) Glucose 118 H (70-100) mg/dL Lactic Acid (0.5-2.0) mmol/L Calcium 9.1 (8.6-10.3) mg/dL Magnesium 1.9 (1.9-2.7) mg/dL Total Bilirubin 0.40 (0.2-1.0) mg/dL AST 18 (13-39) U/L ALT 15 (7-52) U/L Alkaline Phosphatase 45 (34-104) U/L Total Creatine Kinase 48 (10-223) U/L CK-MB (CK-2) 0.4 L (0.6-6.3) ng/mL Troponin I 0.00 (<0.04) ng/mL C-Reactive Protein 20.23 H (< 5.00) mg/L B-Natriuretic Peptide ( - 100) pg/mL Total Protein 6.8 (6.4-8.9) g/dL Albumin 4.0 (3.2-5.2) g/dL Globulin 2.8 (2-4) g/dL Albumin/Globulin Ratio 1.4 (1-3) Lipase 12 (11.0-82.0) U/L TSH 2.43 (0.34-5.60) mcIU/mL Influenza A (Rapid) (Negative) Influenza B (Rapid) (Negative) 07/03/16 07/03/16 07/03/16 Range/Units 10:12 10:12 10:24 WBC (3.5-10.8) 10^3/ul RBC (4.0-5.4) 10^6/ul Hgb (14.0-18.0) g/dl Hct (42-52) % MCV (80-94) fL MCH (27-31) pg MCHC (31-36) g/dl RDW (10.5-15) % Plt Count (150-450) 10^3/ul MPV (7.4-10.4) um3 Neut % (Auto) (38-83) % Lymph % (Auto) (25-47) % Jerome % (Auto) (1-9) % Eos % (Auto) (0-6) % Baso % (Auto) (0-2) % Absolute Neuts (auto) (1.5-7.7) 10^3/ul Absolute Lymphs (auto) (1.0-4.8) 10^3/ul Absolute Monos (auto) (0-0.8) 10^3/ul Absolute Eos (auto) (0-0.6) 10^3/ul Absolute Basos (auto) (0-0.2) 10^3/ul Absolute Nucleated RBC 10^3/ul Nucleated RBC % INR (Anticoag Therapy) (0.89-1.11) APTT (26.0-36.3) seconds D-Dimer, Quantitative (Less Than 230) ng/mL Sodium (133-145) mmol/L Potassium (3.5-5.0) mmol/L Chloride (101-111) mmol/L Carbon Dioxide (22-32) mmol/L Anion Gap (2-11) mmol/L BUN (6-24) mg/dL Creatinine (0.67-1.17) mg/dL Est GFR ( Amer) (>60) Est GFR (Non-Af Amer) (>60) BUN/Creatinine Ratio (8-20) Glucose (70-100) mg/dL Lactic Acid 1.2 (0.5-2.0) mmol/L Calcium (8.6-10.3) mg/dL Magnesium (1.9-2.7) mg/dL Total Bilirubin (0.2-1.0) mg/dL AST (13-39) U/L ALT (7-52) U/L Alkaline Phosphatase (34-104) U/L Total Creatine Kinase (10-223) U/L CK-MB (CK-2) (0.6-6.3) ng/mL Troponin I (<0.04) ng/mL C-Reactive Protein (< 5.00) mg/L B-Natriuretic Peptide 93 ( - 100) pg/mL Total Protein (6.4-8.9) g/dL Albumin (3.2-5.2) g/dL Globulin (2-4) g/dL Albumin/Globulin Ratio (1-3) Lipase (11.0-82.0) U/L TSH (0.34-5.60) mcIU/mL Influenza A (Rapid) Negative (Negative) Influenza B (Rapid) Negative (Negative) Assess/Plan/Problems-Billing Assessment: 40 yo male with PMH of tobacco abuse, hx of Transposition of Great Vessels s/p mustard procedure with atrial baffle, chronic back pain, depression who presented on 07/03 with dizziness and lightheadness - Patient Problems (1) Pneumonia Comment: - CAP - Pt had acute hypoxic episode today that resolved quickly; repeat chest xray shows possible consolidation evolving (now after given IVFs) - plan to start azithro and ceftriaxone, add on procalcitonin, urine antigens for s.pneumona and legionella. Influenza negative. - Hold fluids at this time, concern for fluid overload with hx of Transposition of Great Vessels s/p mustard procedure with atrial baffle - TTE showing no changes from 2014 echo. EF 50-55%, Right atrium mod-severely dilated. - continue duonebs prn - no wheezing noted will hold off on steroids. - Blood cx pending. - check labs in am (2) Dizziness Current Visit: Yes Comment: - resolved with IVFs (3) Tachycardia Comment: - resolved. noted to have a junctional tachycardia, resolved after IVFs (4) Tobacco abuse Comment: - 20 + years smokng history - Nicotine patches - smoking cessation (5) Chronic back pain Comment: - controlled. Continues home norco prn (6) DVT prophylaxis Comment: HSQ (7) Full code status Status and Disposition: OBV. Flip to inpatient for Pneumonia. Home when medically stable.
[2016-07-04] MEDS: Ondansetron INJ* 2 MG/ML VIAL IV PRN (14:50)
[2016-07-04] MEDS: cefTRIAXone VIAL(*) 1,000 MG in NS 0.9% 50 ML* 50 ML IVPB SCH (15:00)
[2016-07-04] MEDS: Azithromycin IV(*) 500 MG in NS 0.9% 250 ML* 250 ML IVPB SCH (16:42)
[2016-07-04] MEDS: guaiFENesin ER TAB 600 MG PO SCH (20:45)
[2016-07-04] MEDS: HYDROcodone/ACETAMIN 5-325 MG* 1 TAB PO PRN (20:45)
[2016-07-04] MEDS: Heparin VIAL(*) 5000 UNITS/ML VIAL (FIVE THOUSAND) SUBCUT SCH (20:46)
[2016-07-04] MEDS: Nicotine Patch Removal NOTE PATCH OFF SCH (20:56)
[2016-07-05] MEDS: HYDROcodone/ACETAMIN 5-325 MG* 1 TAB PO PRN (02:15)
[2016-07-05] MEDS: Ondansetron INJ* 2 MG/ML VIAL IV PRN (02:16)
[2016-07-05 05:41] LABS: Hematocrit 38 % (42-52); Hemoglobin 12.9 g/dl (14.0-18.0); Mean Corpuscular HGB Conc 34 g/dl (31-36); Mean Corpuscular Hemoglobin 33 pg (27-31); Mean Corpuscular Volume 95 fL (80-94); Red Blood Count 3.95 10^6/ul (4.0-5.4); Red Cell Distribution Width 13 % (10.5-15)
[2016-07-05 05:42] LABS: Comments Flag Yes
[2016-07-05 05:43] LABS: Add Diff/Slide Review? Manual Diff Added
[2016-07-05 05:55] LABS: BUN/Creatinine Ratio 9.7 (8-20); Calcium 8.4 mg/dL (8.6-10.3); EGFR African American 101.8 (>60); EGFR Non-African American 79.2 (>60)
[2016-07-05 05:58] LABS: Potassium 4.3 mmol/L (3.5-5.0)
[2016-07-05 06:14] LABS: White Blood Count 7.8 10^3/ul (3.5-10.8)
[2016-07-05 06:17] LABS: Neutrophil % 71 % (38-83); RBC Morphology Normal (Normal); Reactive Lymph % 2 % (0-6)
--- NOTE | 2016-07-05 08:24 | PN ---
Subjective Date of Service: 07/05/16 Interval History: Patient reports he feels much much better today. Denies fever or chills. Nausea resolved. Better appetite. No SOB. Reports cough is much better. No diarrhea. Per nursing staff pt ambulated on RA O2 sat down to 86%. Objective Active Medications: Acetaminophen (Tylenol Tab*) 650 mg PO Q6H PRN PRN Reason: FEVER/PAIN Last Admin: 07/04/16 08:07 Dose: 650 mg Hydrocodone Bitart/Acetaminophen ([place] 5-325 Tab*) 1 tab PO Q6H PRN PRN Reason: PAIN Last Admin: 07/05/16 02:15 Dose: 1 tab Albuterol/Ipratropium (Duoneb (Albuterol 2.5 Mg/Ipratropium 0.5 Mg)) 1 neb INH Q4H PRN PRN Reason: SOB/WHEEZING Last Admin: 07/04/16 11:57 Dose: 1 neb Guaifenesin (Mucinex*) 1,200 mg PO BID [facility] Last Admin: 07/04/16 20:45 Dose: 1,200 mg Heparin Sodium (Porcine) (Heparin Vial(*)) 5,000 units SUBCUT Q12HR [facility] Last Admin: 07/04/16 20:46 Dose: 5,000 units Ceftriaxone Sodium 1,000 mg/ (Sodium Chloride) 50 mls @ 200 mls/hr IVPB Q24H [facility] Last Admin: 07/04/16 15:00 Dose: 200 mls/hr Azithromycin 500 mg/ Sodium (Chloride) 250 mls @ 250 mls/hr IVPB Q24H [facility] Last Admin: 07/04/16 16:42 Dose: 250 mls/hr Nicotine (Nicotine Inhaler*) 10 mg INH Q2H PRN PRN Reason: CRAVING Nicotine (Nicotine Patch 7 Mg/24 Hr*) 1 patch TRANSDERM 0800 [facility] Last Admin: 07/04/16 08:08 Dose: Not Given Nicotine Polacrilex (Nicotine Gum*) 2 mg PO Q2H PRN PRN Reason: CRAVING Ondansetron HCl (Zofran Inj*) 4 mg IV Q4H PRN PRN Reason: NAUSEA Last Admin: 07/05/16 02:16 Dose: 4 mg Pharmacy Profile Note (Nicotine Patch Removal Note*) 1 note PATCH OFF 2100 [facility] Last Admin: 07/04/16 20:56 Dose: Not Given Vital Signs 07/04/16 07/04/16 07/04/16 20:00 20:45 22:45 Temperature Pulse Rate Respiratory 14 16 20 Rate Blood Pressure (mmHg) O2 Sat by Pulse Oximetry 07/04/16 07/05/16 07/05/16 23:20 02:15 02:17 Temperature 100.4 F 101.3 F Pulse Rate 64 89 Respiratory 16 18 Rate Blood Pressure 137/67 128/72 (mmHg) O2 Sat by Pulse 93 92 Oximetry 07/05/16 07/05/16 02:50 07:32 Temperature 97.6 F Pulse Rate 65 Respiratory 18 14 Rate Blood Pressure 130/71 (mmHg) O2 Sat by Pulse 97 Oximetry Oxygen Devices in Use Now: Nasal Cannula - 2L NC Appearance: A+O x3 male sitting up bed in NAD Eyes: No Scleral Icterus, PERRLA Ears/Nose/Mouth/Throat: NL Teeth, Lips, Gums Neck: NL Appearance and Movements; NL JVP Respiratory: Symmetrical Chest Expansion and Respiratory Effort, - - LLL diminished, mild exp wheeze Cardiovascular: NL Sounds; No Murmurs; No JVD, RRR, No Edema Abdominal: NL Sounds; No Tenderness; No Distention Lymphatic: No Cervical Adenopathy Extremities: No Edema, No Clubbing, Cyanosis Skin: No Rash or Ulcers, No Nodules or Sclerosis Neurological: Alert and Oriented x 3, NL Sensation, NL Gait, NL Muscle Strength and Tone Lines/Tubes/Other Access: Clean, Dry and Intact Peripheral IV Nutrition: Taking PO's Result Diagrams: 07/05/16 04:27 07/05/16 04:26 Additional Lab and Data: Lab Results 07/03/16 07/03/16 07/03/16 Range/Units 10:12 10:12 10:12 WBC 7.2 (3.5-10.8) 10^3/ul RBC 4.81 (4.0-5.4) 10^6/ul Hgb 15.3 (14.0-18.0) g/dl Hct 45 (42-52) % MCV 93 (80-94) fL MCH 32 H (27-31) pg MCHC 34 (31-36) g/dl RDW 13 (10.5-15) % Plt Count 162 (150-450) 10^3/ul MPV 8 (7.4-10.4) um3 Neut % (Auto) 62.0 (38-83) % Lymph % (Auto) 20.2 L (25-47) % [place] % (Auto) 17.1 H (1-9) % Eos % (Auto) 0.4 (0-6) % Baso % (Auto) 0.3 (0-2) % Absolute Neuts (auto) 4.5 (1.5-7.7) 10^3/ul Absolute Lymphs (auto) 1.5 (1.0-4.8) 10^3/ul Absolute Monos (auto) 1.2 H (0-0.8) 10^3/ul Absolute Eos (auto) 0 (0-0.6) 10^3/ul Absolute Basos (auto) 0 (0-0.2) 10^3/ul Absolute Nucleated RBC 0.01 10^3/ul Nucleated RBC % 0.1 INR (Anticoag Therapy) 0.98 (0.89-1.11) APTT 27.7 (26.0-36.3) seconds D-Dimer, Quantitative < 200 (Less Than 230) ng/mL Sodium 134 (133-145) mmol/L Potassium 4.4 (3.5-5.0) mmol/L Chloride 104 (101-111) mmol/L Carbon Dioxide 19 L (22-32) mmol/L Anion Gap 11 (2-11) mmol/L BUN 16 (6-24) mg/dL Creatinine 1.13 (0.67-1.17) mg/dL Est GFR ( Amer) 91.5 (>60) Est GFR (Non-Af Amer) 71.2 (>60) BUN/Creatinine Ratio 14.2 (8-20) Glucose 118 H (70-100) mg/dL Lactic Acid (0.5-2.0) mmol/L Calcium 9.1 (8.6-10.3) mg/dL Magnesium 1.9 (1.9-2.7) mg/dL Total Bilirubin 0.40 (0.2-1.0) mg/dL AST 18 (13-39) U/L ALT 15 (7-52) U/L Alkaline Phosphatase 45 (34-104) U/L Total Creatine Kinase 48 (10-223) U/L CK-MB (CK-2) 0.4 L (0.6-6.3) ng/mL Troponin I 0.00 (<0.04) ng/mL C-Reactive Protein 20.23 H (< 5.00) mg/L B-Natriuretic Peptide ( - 100) pg/mL Total Protein 6.8 (6.4-8.9) g/dL Albumin 4.0 (3.2-5.2) g/dL Globulin 2.8 (2-4) g/dL Albumin/Globulin Ratio 1.4 (1-3) Lipase 12 (11.0-82.0) U/L TSH 2.43 (0.34-5.60) mcIU/mL Influenza A (Rapid) (Negative) Influenza B (Rapid) (Negative) 07/03/16 07/03/16 07/03/16 Range/Units 10:12 10:12 10:24 WBC (3.5-10.8) 10^3/ul RBC (4.0-5.4) 10^6/ul Hgb (14.0-18.0) g/dl Hct (42-52) % MCV (80-94) fL MCH (27-31) pg MCHC (31-36) g/dl RDW (10.5-15) % Plt Count (150-450) 10^3/ul MPV (7.4-10.4) um3 Neut % (Auto) (38-83) % Lymph % (Auto) (25-47) % [place] % (Auto) (1-9) % Eos % (Auto) (0-6) % Baso % (Auto) (0-2) % Absolute Neuts (auto) (1.5-7.7) 10^3/ul Absolute Lymphs (auto) (1.0-4.8) 10^3/ul Absolute Monos (auto) (0-0.8) 10^3/ul Absolute Eos (auto) (0-0.6) 10^3/ul Absolute Basos (auto) (0-0.2) 10^3/ul Absolute Nucleated RBC 10^3/ul Nucleated RBC % INR (Anticoag Therapy) (0.89-1.11) APTT (26.0-36.3) seconds D-Dimer, Quantitative (Less Than 230) ng/mL Sodium (133-145) mmol/L Potassium (3.5-5.0) mmol/L Chloride (101-111) mmol/L Carbon Dioxide (22-32) mmol/L Anion Gap (2-11) mmol/L BUN (6-24) mg/dL Creatinine (0.67-1.17) mg/dL Est GFR ( Amer) (>60) Est GFR (Non-Af Amer) (>60) BUN/Creatinine Ratio (8-20) Glucose (70-100) mg/dL Lactic Acid 1.2 (0.5-2.0) mmol/L Calcium (8.6-10.3) mg/dL Magnesium (1.9-2.7) mg/dL Total Bilirubin (0.2-1.0) mg/dL AST (13-39) U/L ALT (7-52) U/L Alkaline Phosphatase (34-104) U/L Total Creatine Kinase (10-223) U/L CK-MB (CK-2) (0.6-6.3) ng/mL Troponin I (<0.04) ng/mL C-Reactive Protein (< 5.00) mg/L B-Natriuretic Peptide 93 ( - 100) pg/mL Total Protein (6.4-8.9) g/dL Albumin (3.2-5.2) g/dL Globulin (2-4) g/dL Albumin/Globulin Ratio (1-3) Lipase (11.0-82.0) U/L TSH (0.34-5.60) mcIU/mL Influenza A (Rapid) Negative (Negative) Influenza B (Rapid) Negative (Negative) Microbiology and Other Data: Microbiology 07/04/16 20:25 Gram Stain - Final Sputum 07/04/16 20:25 Legionella Urinary Antigen - Final Urine Negative Legionella Streptococcus pneumoniae Ag Screen - Final Negative S. 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 Continue azithro and ceftriaxone - urine antigens for s.pneumona and legionella negative. Influenza negative. - continue duonebs prn - Blood cx pending. - check labs in am -Referral to Dr. Cabral at discharge for PFT testing - 20+ hx of tobacco abuse (2) Dizziness Current Visit: Yes Comment: - resolved with IVFs (3) Tachycardia Comment: - resolved. 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 EF 50-55%, Right atrium mod-severely dilated. (6) Chronic back pain Comment: - controlled. Continues home norco prn (7) DVT prophylaxis Comment: HSQ (8) Full code status Status and Disposition: inpatient for Pneumonia and reactive airway disease. Home when medically stable , possibly tomorrow
[2016-07-05] MEDS: guaiFENesin ER TAB 600 MG PO SCH ×2 (08:58→21:18)
[2016-07-05] MEDS: Nicotine PATCH 7 MG/24 HR* PATCH TRANSDERM SCH (08:59)
[2016-07-05] MEDS: Heparin VIAL(*) 5000 UNITS/ML VIAL (FIVE THOUSAND) SUBCUT SCH ×2 (08:59→21:18)
[2016-07-05] MEDS: Acetaminophen TAB* 325 MG PO PRN (11:32)
[2016-07-05] MEDS: cefTRIAXone VIAL(*) 1,000 MG in NS 0.9% 50 ML* 50 ML IVPB SCH (15:12)
[2016-07-05] MEDS ORDERED: predniSONE TAB* 20 MG PO ONE (15:36)
[2016-07-05] MEDS: Azithromycin IV(*) 500 MG in NS 0.9% 250 ML* 250 ML IVPB SCH (16:06)
[2016-07-05] MEDS: Nicotine Patch Removal NOTE PATCH OFF SCH (21:18)
[2016-07-06 06:08] LABS: Hematocrit 45 % (42-52); Hemoglobin 15.4 g/dl (14.0-18.0); Mean Corpuscular HGB Conc 34 g/dl (31-36); Mean Corpuscular Hemoglobin 32 pg (27-31); Mean Corpuscular Volume 93 fL (80-94); Mean Platelet Volume 9 um3 (7.4-10.4); Red Blood Count 4.81 10^6/ul (4.0-5.4); Red Cell Distribution Width 13 % (10.5-15)
[2016-07-06 06:24] LABS: BUN/Creatinine Ratio 15.9 (8-20); Calcium 9.7 mg/dL (8.6-10.3); EGFR African American 122.1 (>60); Potassium 4.1 mmol/L (3.5-5.0)
[2016-07-06 07:38] VITALS: BP 122/65
[2016-07-06] MEDS ORDERED: Azithromycin TAB* 250 MG PO SCH (09:00)
[2016-07-06] MEDS ORDERED: predniSONE TAB* 20 MG PO SCH (09:00)
[2016-07-06] MEDS: guaiFENesin ER TAB 600 MG PO SCH (09:27)
[2016-07-06] MEDS: Heparin VIAL(*) 5000 UNITS/ML VIAL (FIVE THOUSAND) SUBCUT SCH (09:27)
[2016-07-06] MEDS: Nicotine PATCH 7 MG/24 HR* PATCH TRANSDERM SCH (09:30)
--- NOTE | 2016-07-06 10:59 | PN ---
Subjective Date of Service: 07/06/16 Interval History: Patient seen and examined at bedside. Patient observed ambulating in room and interacting with daughter and spouse with no SOB. He denies CP, fever/chills, n/ v. He reports feeling better overall and would like to go home. Patient's O2 sats on room air after ambulating around the unit was 99%. No other nursing concerns. Family History: Unchanged from Admission Social History: Unchanged from Admission Past Medical History: Unchanged from Admission Objective Active Medications: Acetaminophen (Tylenol Tab*) 650 mg PO Q6H PRN PRN Reason: FEVER/PAIN Last Admin: 07/05/16 11:32 Dose: 650 mg Hydrocodone Bitart/Acetaminophen ([place] 5-325 Tab*) 1 tab PO Q6H PRN PRN Reason: PAIN Last Admin: 07/05/16 02:15 Dose: 1 tab Albuterol/Ipratropium (Duoneb (Albuterol 2.5 Mg/Ipratropium 0.5 Mg)) 1 neb INH Q4H PRN PRN Reason: SOB/WHEEZING Last Admin: 07/04/16 11:57 Dose: 1 neb Azithromycin (Zithromax Tab*) 250 mg PO DAILY [facility] Last Admin: 07/06/16 09:27 Dose: 250 mg Guaifenesin (Mucinex*) 1,200 mg PO BID [facility] Last Admin: 07/06/16 09:27 Dose: 1,200 mg Heparin Sodium (Porcine) (Heparin Vial(*)) 5,000 units SUBCUT Q12HR [facility] Last Admin: 07/06/16 09:27 Dose: 5,000 units Ceftriaxone Sodium 1,000 mg/ (Sodium Chloride) 50 mls @ 200 mls/hr IVPB Q24H [facility] Last Admin: 07/05/16 15:12 Dose: 200 mls/hr Nicotine (Nicotine Inhaler*) 10 mg INH Q2H PRN PRN Reason: CRAVING Nicotine (Nicotine Patch 7 Mg/24 Hr*) 1 patch TRANSDERM 0800 [facility] Last Admin: 07/06/16 09:30 Dose: Not Given Nicotine Polacrilex (Nicotine Gum*) 2 mg PO Q2H PRN PRN Reason: CRAVING Ondansetron HCl (Zofran Inj*) 4 mg IV Q4H PRN PRN Reason: NAUSEA Last Admin: 07/05/16 02:16 Dose: 4 mg Pharmacy Profile Note (Nicotine Patch Removal Note*) 1 note PATCH OFF 2099 [facility] Last Admin: 07/05/16 21:18 Dose: Not Given Prednisone (Deltasone Tab*) 40 mg PO DAILY [facility] Stop: 07/09/16 09:01 Last Admin: 07/06/16 09:27 Dose: 40 mg Vital Signs 07/05/16 07/05/16 07/05/16 11:22 14:34 14:50 Temperature 100.5 F 98.1 F Pulse Rate 72 58 Respiratory 16 18 Rate Blood Pressure 112/57 117/56 (mmHg) O2 Sat by Pulse 96 94 Oximetry 07/05/16 07/05/16 07/05/16 15:47 16:43 19:19 Temperature 98.6 F Pulse Rate 59 Respiratory 16 Rate Blood Pressure 120/65 (mmHg) O2 Sat by Pulse 94 97 95 Oximetry 07/05/16 07/06/16 07/06/16 20:00 00:21 07:11 Temperature 97.6 F 98.2 F Pulse Rate 58 71 Respiratory 18 16 16 Rate Blood Pressure 121/72 122/65 (mmHg) O2 Sat by Pulse 98 97 Oximetry 07/06/16 07/06/16 07:51 08:29 Temperature Pulse Rate 60 Respiratory 16 Rate Blood Pressure (mmHg) O2 Sat by Pulse 99 Oximetry Oxygen Devices in Use Now: None Appearance: Young male, ambulating in room, in NAD Eyes: PERRLA Ears/Nose/Mouth/Throat: Clear Oropharnyx, Mucous Membranes Moist Neck: NL Appearance and Movements; NL JVP Respiratory: Symmetrical Chest Expansion and Respiratory Effort, Clear to Auscultation - LLL diminished, - - prolonged exp phase Cardiovascular: NL Sounds; No Murmurs; No JVD, RRR Abdominal: NL Sounds; No Tenderness; No Distention Extremities: No Edema, No Clubbing, Cyanosis Skin: No Rash or Ulcers, No Nodules or Sclerosis Neurological: Alert and Oriented x 3, NL Gait, NL Muscle Strength and Tone Lines/Tubes/Other Access: Clean, Dry and Intact Peripheral IV Nutrition: Taking PO's Result Diagrams: 07/06/16 05:29 07/06/16 05:29 Additional Lab and Data: Lab Results 07/03/16 07/03/16 07/03/16 Range/Units 10:12 10:12 10:12 WBC 7.2 (3.5-10.8) 10^3/ul RBC 4.81 (4.0-5.4) 10^6/ul Hgb 15.3 (14.0-18.0) g/dl Hct 45 (42-52) % MCV 93 (80-94) fL MCH 32 H (27-31) pg MCHC 34 (31-36) g/dl RDW 13 (10.5-15) % Plt Count 162 (150-450) 10^3/ul MPV 8 (7.4-10.4) um3 Neut % (Auto) 62.0 (38-83) % Lymph % (Auto) 20.2 L (25-47) % [place] % (Auto) 17.1 H (1-9) % Eos % (Auto) 0.4 (0-6) % Baso % (Auto) 0.3 (0-2) % Absolute Neuts (auto) 4.5 (1.5-7.7) 10^3/ul Absolute Lymphs (auto) 1.5 (1.0-4.8) 10^3/ul Absolute Monos (auto) 1.2 H (0-0.8) 10^3/ul Absolute Eos (auto) 0 (0-0.6) 10^3/ul Absolute Basos (auto) 0 (0-0.2) 10^3/ul Absolute Nucleated RBC 0.01 10^3/ul Nucleated RBC % 0.1 INR (Anticoag Therapy) 0.98 (0.89-1.11) APTT 27.7 (26.0-36.3) seconds D-Dimer, Quantitative < 200 (Less Than 230) ng/mL Sodium 134 (133-145) mmol/L Potassium 4.4 (3.5-5.0) mmol/L Chloride 104 (101-111) mmol/L Carbon Dioxide 19 L (22-32) mmol/L Anion Gap 11 (2-11) mmol/L BUN 16 (6-24) mg/dL Creatinine 1.13 (0.67-1.17) mg/dL Est GFR ( Amer) 91.5 (>60) Est GFR (Non-Af Amer) 71.2 (>60) BUN/Creatinine Ratio 14.2 (8-20) Glucose 118 H (70-100) mg/dL Lactic Acid (0.5-2.0) mmol/L Calcium 9.1 (8.6-10.3) mg/dL Magnesium 1.9 (1.9-2.7) mg/dL Total Bilirubin 0.40 (0.2-1.0) mg/dL AST 18 (13-39) U/L ALT 15 (7-52) U/L Alkaline Phosphatase 45 (34-104) U/L Total Creatine Kinase 48 (10-223) U/L CK-MB (CK-2) 0.4 L (0.6-6.3) ng/mL Troponin I 0.00 (<0.04) ng/mL C-Reactive Protein 20.23 H (< 5.00) mg/L B-Natriuretic Peptide ( - 100) pg/mL Total Protein 6.8 (6.4-8.9) g/dL Albumin 4.0 (3.2-5.2) g/dL Globulin 2.8 (2-4) g/dL Albumin/Globulin Ratio 1.4 (1-3) Lipase 12 (11.0-82.0) U/L TSH 2.43 (0.34-5.60) mcIU/mL Influenza A (Rapid) (Negative) Influenza B (Rapid) (Negative) 07/03/16 07/03/16 07/03/16 Range/Units 10:12 10:12 10:24 WBC (3.5-10.8) 10^3/ul RBC (4.0-5.4) 10^6/ul Hgb (14.0-18.0) g/dl Hct (42-52) % MCV (80-94) fL MCH (27-31) pg MCHC (31-36) g/dl RDW (10.5-15) % Plt Count (150-450) 10^3/ul MPV (7.4-10.4) um3 Neut % (Auto) (38-83) % Lymph % (Auto) (25-47) % [place] % (Auto) (1-9) % Eos % (Auto) (0-6) % Baso % (Auto) (0-2) % Absolute Neuts (auto) (1.5-7.7) 10^3/ul Absolute Lymphs (auto) (1.0-4.8) 10^3/ul Absolute Monos (auto) (0-0.8) 10^3/ul Absolute Eos (auto) (0-0.6) 10^3/ul Absolute Basos (auto) (0-0.2) 10^3/ul Absolute Nucleated RBC 10^3/ul Nucleated RBC % INR (Anticoag Therapy) (0.89-1.11) APTT (26.0-36.3) seconds D-Dimer, Quantitative (Less Than 230) ng/mL Sodium (133-145) mmol/L Potassium (3.5-5.0) mmol/L Chloride (101-111) mmol/L Carbon Dioxide (22-32) mmol/L Anion Gap (2-11) mmol/L BUN (6-24) mg/dL Creatinine (0.67-1.17) mg/dL Est GFR ( Amer) (>60) Est GFR (Non-Af Amer) (>60) BUN/Creatinine Ratio (8-20) Glucose (70-100) mg/dL Lactic Acid 1.2 (0.5-2.0) mmol/L Calcium (8.6-10.3) mg/dL Magnesium (1.9-2.7) mg/dL Total Bilirubin (0.2-1.0) mg/dL AST (13-39) U/L ALT (7-52) U/L Alkaline Phosphatase (34-104) U/L Total Creatine Kinase (10-223) U/L CK-MB (CK-2) (0.6-6.3) ng/mL Troponin I (<0.04) ng/mL C-Reactive Protein (< 5.00) mg/L B-Natriuretic Peptide 93 ( - 100) pg/mL Total Protein (6.4-8.9) g/dL Albumin (3.2-5.2) g/dL Globulin (2-4) g/dL Albumin/Globulin Ratio (1-3) Lipase (11.0-82.0) U/L TSH (0.34-5.60) mcIU/mL Influenza A (Rapid) Negative (Negative) Influenza B (Rapid) Negative (Negative) Microbiology and Other Data: Microbiology 07/04/16 20:25 Gram Stain - Final Sputum 07/04/16 20:25 Legionella Urinary Antigen - Final Urine Negative Legionella Streptococcus pneumoniae Ag Screen - Final Negative S. 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 On RA, no supplemental O2 required. Continue prednisone 40 mg for 5 day course. Continue azithromycin and cefuroxime. Urine antigens for s. pneumona and legionella negative. Influenza negative. Outpatient referral to Dr. Cabral for PFT testing - 20+ hx of tobacco abuse (2) Dizziness Code(s): R42 - DIZZINESS AND GIDDINESS Comment: Resolved with IVFs (3) Tachycardia Code(s): R00.0 - TACHYCARDIA, UNSPECIFIED Comment: Resolved. Noted to have a junctional tachycardia, resolved after IVFs (4) Tobacco abuse Status: Chronic Code(s): Z72.0 - TOBACCO USE SNOMED Code(s): 795016219 Comment: 20+ years smoking history Continue nicotine replacement. Smoking cessation education provided. I have advised the patient to quit. He is moderately motivated to do so. (5) Hx of complete transposition of great vessels Code(s): Z98.890 - OTHER SPECIFIED POSTPROCEDURAL STATES Comment: S/p mustard procedure with atrial baffle as an TTE showing no changes from 2014 echo. EF 50-55%, right atrium mod-severely dilated. (6) Chronic back pain Code(s): M54.9 - DORSALGIA, UNSPECIFIED; G89.29 - OTHER CHRONIC PAIN Comment: Controlled. Continue home norco prn (7) DVT prophylaxis Code(s): DUB6194 - Comment: SQ heparin (8) Full code status Code(s): Z78.9 - OTHER SPECIFIED HEALTH STATUS Status and Disposition: Inpatient for Pneumonia and reactive airway disease. D/c to home.
[2016-07-06] MEDS ORDERED: ceFUROXime TAB(*) 250 MG PO SCH (12:00)
--- NOTE | 2016-07-07 03:26 | DS ---
DISCHARGE SUMMARY: DATE OF ADMISSION: 07/03/16 DATE OF DISCHARGE: 07/06/16 PRIMARY CARE PHYSICIAN: Dr. Singh. PROVIDER: Lukasz Do NP ATTENDING PHYSICIAN: Dr. Rupali Curran *(as dictated by Lukasz Do NP) PRIMARY DISCHARGE DIAGNOSIS: Pneumonia with suspected reactive airway disease. SECONDARY DISCHARGE DIAGNOSES: 1. History of transposition of the great arteries, diagnosed at . The patient is status post a Norberto-Ruby atrial septostomy and a Mustard procedure at [facility]. 2. Chronic back pain. 3. Depression. MEDICATIONS AT DISCHARGE: 1. Simvastatin 5 mg daily. 2. [place] 1 tab q.6 hours p.r.n. 3. Lexapro 5 mg daily. 4. Prednisone 40 mg daily to complete a 5-day course. 5. Mucinex 1200 mg b.i.d. 6. Cefuroxime 500 mg b.i.d. 7. Azithromycin 250 mg daily to complete a 5-day course. HOSPITAL TESTING DURING THIS ADMISSION: Transthoracic echocardiogram, conclusion: The patient with history of transposition of the great vessels, status post Mustard procedure with atrial Norberto-Ruby. Left ventricular systolic function is at the lower limits of normal. LV is somewhat small but with low normal function. Septal wall hypertrophy is observed. The estimated ejection fraction is 50% to 55%. The right ventricle wall thickness is moderately increased. The right ventricle is moderately dilated. The right ventricular global systolic function is mildly reduced. Flattened in systole and diastole consistent with right ventricular pressure and volume overload. The right atrium is moderately to severely dilated. There is no evidence of aortic regurgitation. There is mild mitral regurgitation. The tricuspid valve leaflets are mildly thickened. There is no evidence of pulmonic regurgitation. There is no significant pericardial effusion. The ascending aorta is not well visualized. Atrial baffle appears top function normally. Compared to the report from 09/17/13, there is little change. HOSPITAL COURSE OF STAY: For full details, please refer to the full medical record in the H and P provided by Monik Valera NP. In summary, Mr. Gibson is a 40-year- old male presented to the ER with concern for dizziness, lightheadedness, cough, and subjective fevers and chills at home. In the ER, the patient was noted to be tachycardic with a heart rate running in the 130s with concern for junctional tachycardia. After receiving fluids, he did convert to sinus rhythm. An echocardiogram was checked as previously mentioned. The following day, the patient was noted to have an acute hypoxic episode. A repeat chest x-ray was done and showed a possible consolidation that was evolving. The patient was started on azithromycin and ceftriaxone. He continued to demonstrate hypoxia and was started on prednisone the following day with significant improvement. The patient was then able to be weaned from oxygen and maintain his O2 saturations on room air at rest and with ambulation. Due to his presentation and response to the steroids, it was suspected that he most likely has reactive airway disease. We discussed with the patient having him follow up as an outpatient with Dr. Cabral for pulmonary function testing, given his risk factors, such as 20-plus- year history of smoking. On day of discharge, 07/06/16, the patient is able to perform ADLs and ambulate in the halls without requiring oxygen and is maintaining his oxygen saturation above 93%. He has no acute complaints. He reports feeling better. I did again discuss with him the importance of smoking cessation and he is moderately motivated to do so. He says that he has nicotine patches at home. I also did remind him that he needs to follow up with Dr. Cabral. Referral was included on his discharge paperwork. He can also get this done through his PCP's office. The patient was advised to continue his antibiotics as well as his prednisone to completion. He has a plan to follow up with his doctor on . There were no further concerns with junctional tachycardia. CONCERNS AT DISCHARGE: Mr. Gibson will be discharged to home on 07/06/16 with a plan to follow up with his PCP next week. DIET: Resume previous diet. ACTIVITY: As tolerated. CONDITION: Improved, stable. DISPOSITION: To home. TIME SPENT: Time spent on this discharge was approximately 40 minutes. Again, this is only a brief summary of the patient's hospital course of stay. For full details, please refer to the full medical record. If you have any further questions or need further assistance, please feel free to contact me at . LUKASZ DO NP CC: Dr. Singh* [id number]/[facility] #: [id number] RAKESH
== END 2016-07-06 11:44 | disposition home or self-care (01) | DRG 139 ==
LOC: ED 09:43 → MEDTELE 13:16 → OBSVTOIN 07-04 18:15
PROVIDERS: ADMIT Internal Medicine; ATTEND Internal Medicine
DX: J18.9 Pneumonia, unspecified organism (principal); I47.1 Supraventricular tachycardia; E78.5 Hyperlipidemia, unspecified; Z87.74 Personal history of (corrected) congenital malformations of heart and circulatory system; F17.210 Nicotine dependence, cigarettes, uncomplicated; F32.9 Major depressive disorder, single episode, unspecified; Z80.6 Family history of leukemia; F10.10 Alcohol abuse, uncomplicated; M54.9 Dorsalgia, unspecified; G89.29 Other chronic pain; R09.02 Hypoxemia; R42 Dizziness and giddiness; J45.909 Unspecified asthma, uncomplicated; I34.0 Nonrheumatic mitral (valve) insufficiency
CPT/HCPCS: 36415; 71010; 80048; 80053; 81003; 82550; 82553; 83605; 83690; 83735; 83880; 84145; 84443; 84484; 85025; 85379; 85610; 85730; 86140; 87070; 87205; 87502; 87899; 93005; 93306; 94640; 94760; 99406; A9270-GY; G0378; J0456; J0696; J1644; J1885; J2405; J7512

== ENCOUNTER 2017-02-23 10:34 | Emergency (ER) | payer SELFPAY ==
[2017-02-23 10:41] VITALS: BP 126/72
[2017-02-23] MEDS ORDERED: methylPREDNISolone 125 MG* 2 ML VIAL IV ONE (11:44)
[2017-02-23] MEDS ORDERED: NS 0.9% 1000 ML* 1,000 ML IV ONE (11:44)
[2017-02-23] MEDS ORDERED: Albuterol/Ipratropium NEB.SOL* Albuterol 2.5 MG/Ipratropium 0.5 MG 3 ML INH ONE (11:44)
[2017-02-23] MEDS ORDERED: Acetaminophen TAB* 325 MG PO ONE (11:47)
--- NOTE | 2017-02-23 12:20 | RAD ---
INDICATION: Shortness of breath. COMPARISON: Comparison is made with a prior chest x-ray study from July 14, 2016. TECHNIQUE: Dual-energy PA and lateral views of the chest were obtained. FINDINGS: The heart is within normal limits in size. Mediastinal and hilar contours appear within normal limits. There is a small infiltrate in the right midlung. The lungs are otherwise clear. No pleural effusion is seen. IMPRESSION: SMALL RIGHT LUNG INFILTRATE.
[2017-02-23] MEDS ORDERED: cefTRIAXone(*) 1 GM in NS 0.9% 50 ML* 50 ML IVPB ONE (12:24)
[2017-02-23] MEDS ORDERED: Azithromycin TAB* 250 MG PO ONE (12:24)
[2017-02-23] MEDS ORDERED: Ondansetron INJ* 2 MG/ML VIAL IV ONE (12:32)
[2017-02-23] MEDS ORDERED: Ondansetron INJ* 2 MG/ML VIAL ONE (12:34)
[2017-02-23 13:01] LABS: Hematocrit 45 % (42-52); Hemoglobin 15.6 g/dl (14.0-18.0); Mean Corpuscular HGB Conc 34 g/dl (31-36); Mean Corpuscular Hemoglobin 32 pg (27-31); Mean Corpuscular Volume 94 fL (80-94); Mean Platelet Volume 8 um3 (7.4-10.4); Red Blood Count 4.82 10^6/ul (4.0-5.4); Red Cell Distribution Width 13 % (10.5-15); White Blood Count 8.7 10^3/ul (3.5-10.8)
[2017-02-23 13:14] LABS: Troponin I 0.01 ng/mL (<0.04)
[2017-02-23 13:15] LABS: Albumin 4.6 g/dL (3.2-5.2); BUN/Creatinine Ratio 9.8 (8-20); Calcium 9.5 mg/dL (8.6-10.3); EGFR African American 82.6 (>60); EGFR Non-African American 64.2 (>60); Globulin 3.3 g/dL (2-4); Total Bilirubin 0.5 mg/dL (0.2-1.0); Total Protein 7.9 g/dL (6.4-8.9)
[2017-02-23] MEDS ORDERED: Iohexol 350* (CONTRAST) 500 ML MDV IV ONE (13:26)
--- NOTE | 2017-02-23 14:16 | RAD ---
Indication: Pleuritic chest pain, shortness of breath, cough. Contrast: Administered 73.2 ml of OMNIPAQUE 350 mg/ml CTA of the chest was performed after IV contrast administration. Coronal and sagittal reconstructed images were obtained. The pulmonary arterial tree is well opacified. There are no filling defects present to suggest pulmonary embolus. The aorta demonstrates no evidence of aortic dissection. The inferior thyroid lobes are unremarkable. No mediastinal or hilar adenopathy is noted. The heart demonstrates no pericardial effusion. The trachea and major bronchi appear patent. Airspace disease is noted in the superior segment of the left lower lobe as well as the superior segment of the right lower lobe. Atelectasis or consolidation is noted in the left lower lobe posteriorly. These may represent patchy areas of pneumonia. No pneumothorax is noted. The visualized abdominal organs are grossly unremarkable. IMPRESSION: No definite pulmonary embolus is noted. Patchy areas of airspace disease in the superior segments of both lower lobes as well as the left lower lobe consistent with areas of early pneumonia. No evidence of aortic dissection is noted.
--- NOTE | 2017-02-23 15:20 | ED ---
Ayo Shaikh Gabriel, scribed for Kevin Blackmon MD on 02/23/17 at 1135 . Shortness of Breath - HPI Summary HPI Summary: This patient is a 41 year old M presenting [place] [facility] accompanied by aunt with a chief complaint of SOB since 4 days ago. Reports positive contact with son who had walking pneumonia, diagnosed by medical services. The patient rates the pain 5/10 in severity. Patient reports CP, body aches, diaphoresis, productive cough with brown sputum, ROSARIO, fatigue, and rhinorrhea. The patient states he has been having problems with veins in his legs, and is seeing vascular surgery. he has had venous stripping. 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, Other Cardiovascular Problems/Disorders Denies: Hx Angina, Hx Coronary Artery Disease, Hx Hypercholesterolemia, Hx Hypertension, Hx Myocardial Infarction, Hx Pacemaker/ICD, Hx Valvular Heart Disease Respiratory History: Reports: Other Respiratory Problems/Disorders - PULMONARY HYPERTENSIVE ARTERIAL DISEASE Denies: Hx Asthma, Hx Chronic Obstructive Pulmonary Disease (COPD) Musculoskeletal History: Reports: Hx Back Problems Sensory History: Denies: Hx Contacts or Glasses, Hx Hearing Aid Opthamlomology History: Denies: Hx Contacts or Glasses Psychiatric History: Denies: Hx Panic Disorder - Surgical History Surgery Procedure, Year, and Place: 2011 vein surgery rt leg;. open heart surgery as an for transposition of the great vessel ( NO IMPLANTS); Hx Anesthesia Reactions: No Infectious Disease History: No Infectious Disease History: Denies: Traveled Outside the [place] in Last 30 Days - Family History Known Family History: Negative: Cardiac Disease - Social History Alcohol Use: Weekly Alcohol Amount: "every other day" Substance Use Type: Reports: None Hx Tobacco Use: Yes Smoking Status (MU): Light Every Day Tobacco Smoker Type: Cigarettes Amount Used/How Often: 1/2 ppd Have You Smoked in the Last Year: Yes Review of Systems Positive: Fatigue, Skin Diaphoresis, Other - body aches Positive: Nasal Discharge Positive: Chest Pain Positive: Shortness Of Breath, Cough - productive with brown sputum Positive: Headache All Other Systems Reviewed And Are Negative: Yes Physical Exam Triage Information Reviewed: Yes Vital Signs On Initial Exam: Initial Vitals Temp Pulse Resp BP Pulse Ox 100.5 F 111 20 126/72 95 02/23/17 10:35 02/23/17 10:35 02/23/17 10:35 02/23/17 10:35 02/23/17 10:35 Appearance: Positive: Ill-Appearing Skin: Positive: Warm, Skin Color Reflects Adequate Perfusion Head/Face: Positive: Normal Head/Face Inspection Eyes: Positive: EOMI Neck: Positive: Nontender Respiratory/Lung Sounds: Positive: Wheezes - bilateral Cardiovascular: Positive: RRR. Negative: Murmur Abdomen Description: Positive: Nontender Musculoskeletal: Positive: Strength/ROM Intact Neurological: Positive: Sensory/Motor Intact, Alert, Oriented to Person Place, Time, CN Intact II-III Psychiatric: Positive: Normal - José Coma Scale Coma Scale Total: 15 Diagnostics - Vital Signs Vital Signs Temp Pulse Resp BP Pulse Ox 02/23/17 10:52 97 19 97 02/23/17 10:51 104 16 98 02/23/17 10:35 100.5 F 111 20 126/72 95 - Laboratory Result Diagrams: 02/23/17 12:20 02/23/17 12:20 Lab Statement: Any lab studies that have been ordered have been reviewed, and results considered in the medical decision making process. - Radiology CXR Radiology Interpretation Completed By: Radiologist - SMALL RIGHT LUNG INFILTRATE. ED physician has reviewed this radiology report and agrees. - EKG 12:23 Cardiac Rate: NL EKG Rhythm: Sinus Rhythm - 85 BPM EKG Interpretation: Normal ND, QRS, QT EKG Comparison: No Significant Change - in comparison to EKG from 07/25/16 Re-Evaluation - Re-Evaluation First Eval Re-Evaluation Time: 15:19 Change: Improved Comment: lungs clear to asuculation, room air sat 96 Course/Dx - Course Course Of Treatment: 41 yr old with pneumonia. DC home on PO antibiotics, and nebs and steroids. He is comfortable on discharge and has a follow up with his PMD - Diagnoses Provider Diagnoses: Pneumonia Discharge - Discharge Plan Condition: Good Disposition: HOME Prescriptions: Albuterol HFA INHALER* [Ventolin HFA Inhaler*] 2 puff INH Q4H PRN #1 mdi PRN Reason: Cough Amoxicillin/Clavulanate TAB* [Augmentin TAB 875*] 875 mg PO BID #20 tab Azithromycin TAB* [Zithromax TAB (Z-SUMA) 250 mg #6 tabs] 2 tab PO .TODAY, THEN 1 DAILY #1 suma predniSONE TAB* [Deltasone TAB*] 40 mg PO DAILY #8 tab Patient Education Materials: Bacterial Pneumonia (ED) Referrals: Taya Singh MD [Primary Care Provider] - 3 Days The documentation as recorded by the Ayo erazo Gabriel accurately reflects the service I personally performed and the decisions made by Neymar damon Walter, MD.
== END 2017-02-23 15:27 | disposition home or self-care (01) ==
LOC: ED 10:34
DX: J18.9 Pneumonia, unspecified organism (principal); F17.210 Nicotine dependence, cigarettes, uncomplicated; Q24.9 Congenital malformation of heart, unspecified; I27.0 Primary pulmonary hypertension
CPT/HCPCS: 36415; 71020; 71275; 80053; 83605; 83880; 84484; 85025; 85379; 87040; 87502; 93005; 94640; 96360; 96374; 96375; 99282; A9270-GY; J0696; J2405; J2930; Q9967

== ENCOUNTER 2018-11-07 15:25 | Emergency (ER) | payer OTHER ==
--- OUTSIDE RECORDS SUMMARY | 2018-11-07 15:32 | XMS REPORT | Continuity of Care Document ---
:1975 External Reference #:[id number] Author Name Linda Connolly Care Team Providers Name Role Phone Galileo Turner D.O. Primary Care Physician Unavailable Payers Date Identification Numbers Payment Provider Subscriber Effective: 2016 Policy Number: [id number] Cole Gibson Group Name: [id number] [address] PayID: [id number] [place] [address] Effective: 2013 Policy Number: [id number] [employer] Chele Gibson Expires: 2016 Group Number: [id number] [address] PayID: [id number] JO Wise [phone] Expires: 2016 Policy Number: [id number] Medicaid Chele Gibson Group Name: 1 1 [address] PayID: [id number] [place] [address] Effective: 2012 Policy Number: [id number] [employer] Chele Gibson Expires: 2013 Group Number: [id number] [address] PayID: [id number] JO Wise [phone] Problems Active Problems Provider Date Traumatic injury of common peroneal nerve Urmila Flynn MD Onset: 05/10/2015 Family History Date Family Member(s) Observation Comments General No Current Problems Father Cancer Social History Type Date Description Comments Sex Unknown Lives With Alone Occupation Disabled ETOH Use Occasionally consumes alcohol Tobacco Use Start: Unknown Patient is a current smoker, smokes every day Smoking Status Reviewed: 10/22/18 Patient is a current smoker, smokes every day Exercise Type/Frequency Does not exercise Allergies, Adverse Reactions, Alerts Description No Known Drug Allergies Medications Active Medications SIG Qnty Indications Ordering Provider Date Ibuprofen 1 po tid prn 60tabs Unknown 800mg Tablets Citalopram take 1 tablet by Unknown Hydrobromide mouth once daily 20mg Tablets History Medications Cymbalta one twice a day 90caps G57.51 Saul Fonseca, 04/25/2018 - 30mg Talib ELENA M.D. 08/21/2018 Part Metaxalone Unknown - 800mg 10/24/2014 Tablets Lexapro 1 by mouth every Unknown - 20mg Tablets day 02/20/2018 Escitalopram Oxalate 1 by mouth every Unknown - day 02/20/2018 5mg Tablets Bactrim DS 1 by mouth twice Unknown - 800-160mg a day X10 days 12/31/2017 Tablets Simvastatin 1 by mouth every Unknown - 5mg Tablets day 08/21/2018 Xanax one by mouth up Unknown - 0.25mg Tablets to three times 02/20/2018 daily as needed for anxiety Cymbalta 1 by mouth every Unknown - 30mg Talib ELENA day for 1 week 08/21/2018 Part then 2 daily ongoing Tramadol HCL 1-2 tablets by Unknown - 50mg mouth every 6 08/21/2018 Tablets hours as needed pain Vitamin D3 1 by mouth every Unknown - 2000Unit day 08/21/2018 Capsules Vital Signs Date Vital Result Comment 10/22/2018 11:32am Height 72 inches 6'0" Weight 174.00 lb Heart Rate 72 /min Body Temperature 97.6 F O2 % BldC Oximetry 97 % BMI (Body Mass Index) 23.6 kg/m2 08/22/2018 9:26am Height 71 inches 5'11" Weight 174.00 lb Heart Rate 93 /min BP Systolic Sitting 142 mmHg BP Diastolic Sitting 92 mmHg Respiratory Rate 18 /min Pain Level 7 BMI (Body Mass Index) 24.3 kg/m2 07/04/2018 11:24am Height 71 inches 5'11" Heart Rate 74 /min BP Systolic 116 mmHg BP Diastolic 74 mmHg Respiratory Rate 16 /min Body Temperature 98.8 F Pain Level 7 04/25/2018 10:54am Height 71 inches 5'11" Weight 172.00 lb Heart Rate 78 /min BP Systolic 114 mmHg BP Diastolic 70 mmHg Respiratory Rate 12 /min Pain Level 9 BMI (Body Mass Index) 24.0 kg/m2 03/12/2018 9:41am Height 71 inches 5'11" Weight 179.00 lb Heart Rate 80 /min BP Systolic Sitting 110 mmHg Lue reg cuff BP Diastolic Sitting 72 mmHg Lue reg cuff Pain Level 7 BMI (Body Mass Index) 25.0 kg/m2 02/21/2018 9:22am Height 71 inches 5'11" Weight 179.00 lb Heart Rate 68 /min BP Systolic 112 mmHg BP Diastolic 68 mmHg Respiratory Rate 12 /min Pain Level 6 BMI (Body Mass Index) 25.0 kg/m2 01/01/2018 10:00am Height 72 inches 6'0" Weight 171.00 lb Heart Rate 80 /min BP Systolic 120 mmHg BP Diastolic 68 mmHg Respiratory Rate 12 /min Pain Level 5 BMI (Body Mass Index) 23.2 kg/m2 03/10/2016 11:23am Body Temperature 97.8 F 02/25/2016 9:44am Heart Rate 76 /min BP Systolic 130 mmHg BP Diastolic 90 mmHg Respiratory Rate 16 /min Body Temperature 97.6 F 02/11/2016 11:25am Height 72 inches 6'0" Weight 182.00 lb Heart Rate 66 /min BP Systolic 130 mmHg BP Diastolic 82 mmHg Respiratory Rate 16 /min Body Temperature 98.9 F BMI (Body Mass Index) 24.7 kg/m2 05/10/2015 10:42am Height 71 inches 5'11" Weight 184.00 lb Heart Rate 56 /min BP Systolic Sitting 122 mmHg BP Diastolic Sitting 86 mmHg Respiratory Rate 14 /min BMI (Body Mass Index) 25.7 kg/m2 12/01/2014 4:47pm Height 71 inches 5'11" Weight 172.00 lb Pain Level 6 BMI (Body Mass Index) 24.0 kg/m2 11/24/2014 3:18pm Height 71.75 inches 5'11.75" Weight 172.00 lb Pain Level 4 BMI (Body Mass Index) 23.5 kg/m2 05/01/2013 2:13pm Heart Rate 60 /min BP Systolic Sitting 110 mmHg BP Diastolic Sitting 80 mmHg Respiratory Rate 12 /min Procedures Date Code Description Status 07/03/2016 32844 ECHO Transthorasic Realtime 2D W Doppler & Color Flow Hosp Completed 02/25/2016 19905 Excise Benign lesion 1.1-2CM Trunk/Arm/Leg Completed 06/16/2013 96865 Treadmill Interp/Report Only Completed 06/16/2013 01566 Stress Test Supervsn W/Out I/R Completed 06/16/2013 56396 EKG, Interpretation Only Completed 05/01/2013 99023 Nerve Conduction 05-06 Studies Completed 05/01/2013 40053 Needle Electromyography Complete, Five Or More Muscles Completed Studied 01/10/2013 79258 Holter Monitoring 24 HR New Completed 12/19/2012 13676 EKG Tracing & Interpretation Completed Encounters Type Date Location Provider Dx Diagnosis Office Visit 08/22/2018 [facility] Tammy Parisi Tarsal tunnel 9:30a [facility] [place] syndrome, right lower limb F41.9 Anxiety disorder, unspecified Office Visit 07/04/2018 11:00a [facility] Saul Parrish.51 Tarsal tunnel [facility] [place] Fonseca syndrome, right C.M.A. lower limb G57.52 Tarsal tunnel syndrome, left lower limb Office Visit 04/25/2018 11:00a [facility]opedic Saul Burch7.51 Tarsal tunnel [facility] [place] Fonseca syndrome, right C.[facility].A. lower limb G57.52 Tarsal tunnel syndrome, left lower limb Office Visit 03/12/2018 9:30a [facility] Saul Parrish.51 Tarsal tunnel [facility] [place] Fonseca syndrome, right C.M.A. lower limb M76.821 Posterior tibial tendinitis, right leg Office Visit 02/21/2018 9:30a [facility] Saul Burch7.51 Tarsal tunnel [facility] [place] Fonseca syndrome, right C.M.A. lower limb M76.821 Posterior tibial tendinitis, right leg Office Visit 01/01/2018 9:30a [facility] Saul Burch7.51 Tarsal tunnel [facility] [place] Fonseca syndrome, right C.[facility]. 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 Office Visit 05/10/2015 11:00a [place] [facility] Urmila Rina, S84.11xA Injury of [facility] peroneal nerve at lower leg level, right leg, init M25.571 Pain in right ankle and joints of right foot Office Visit 12/01/2014 [facility] Saul 355.8 Mononeuritis Lower 4:20p Services Of Madeline Fonseca M.D. Limb Unspec Office Visit 11/24/2014 [facility] Saul 719.47 Pain Joint Ankle & 3:00p Services Of Madeline Fonseca M.D. Foot Office Visit 06/16/2013 [facility] Antonia 786.51 Pain Precordial 2:19p Assoc,lizzeth Bell M.D. 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 Region Unspec Office Visit 12/19/2012 8:30a [place], 745.10 Transposition [facility] [place], FACC, Vessels Complete Animal Pathology Teacher FSCAI Office Visit 07/01/2012 2:15p [facility] Saul 724.4 Neuritis Or [facility] [place] Fonseca Radiculitis [facility] Thoracic Or Lumbosacral Unspec Office Visit 06/12/2012 2:45p [facility] Saul 719.47 Pain Joint Ankle & [facility] [place] Fonseca Foot [facility] Plan of Treatment 10/22/2018 - Saul Fonseca M.D.G57.51 Tarsal tunnel syndrome, right lower limbFollow up:As needed
[2018-11-07 15:55] VITALS: BP 124/80
--- NOTE | 2018-11-07 16:47 | UC ---
Shoulder Pain HPI - HPI Summary HPI Summary: 42 yo male presents with LEFT shoulder pain. He tells me that last night he was in his home and turned the light off - tripped over a chair and landed on his left shoulder. Had immediate pain. Went to straighten his arm and heard a pop and had severe pain. Has had pain and decreased ROM since that time. Denies numbness or tingling. He is right handed. - History of Current Complaint Chief Complaint: UCUpperExtremity Stated Complaint: L SHOULDER INJ Time Seen by Provider: 11/07/18 16:47 Hx Obtained From: Patient Onset/Duration: Sudden Onset Timing: Constant Severity Initially: Severe Severity Currently: Severe Pain Intensity: 8 Pain Scale Used: 0-10 Numeric - Allergies/Home Medications Allergies/Adverse Reactions: Allergies Allergy/AdvReac Type Severity Reaction Status Date / Time No Known Allergies Allergy Verified 11/07/18 15:56 PMH/Surg Hx/FS Hx/Imm Hx - Additional Past Medical History Additional PMH: Right knee pain Psychological History: Anxiety, Depression - Surgical History Surgical History: Yes Surgery Procedure, Year, and Place: 3 TOTAL vein surgery rt leg;. open heart surgery as an infant for transposition of the great vessel & (NO IMPLANTS) ; - Family History Known Family History: Positive: None Negative: Cardiac Disease - Social History Lives: With Family Alcohol Use: Weekly Alcohol Amount: 3x/wk Substance Use Type: None Smoking Status (MU): Light Every Day Tobacco Smoker Type: Cigarettes Amount Used/How Often: 1/2 ppd Have You Smoked in the Last Year: Yes - Immunization History Most Recent Influenza Vaccination: none Most Recent Tetanus Shot: cant remember Most Recent Pneumonia Vaccination: none Review of Systems All Other Systems Reviewed And Are Negative: Yes Constitutional: Positive: Negative Skin: Positive: Negative Respiratory: Positive: Negative Cardiovascular: Positive: Negative Neurovascular: Positive: Negative Musculoskeletal: Positive: Other: - Left shoulder pain Neurological: Positive: Negative Psychological: Positive: Negative Physical Exam - Summary Physical Exam Summary: GENERAL: NAD. WDWN. No pain distress. SKIN: No rashes, sores, lesions, or open wounds. CHEST: No accessory muscle use. Breathing comfortably and in no distress. CV: Pulses intact radial and ulnar. Cap refill <2seconds MSK: LEFT SHOULDER: Obvious anterior deformity of AC joint with TTP in this area. Pain with flexion and abduction. FROM at left elbow and left wrist. 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 NEURO: Alert. Sensations intact C4-T1 b/l PSYCH: Age appropriate behavior. Triage Information Reviewed: Yes Vital Signs: Initial Vital Signs Temp 98.2 F 11/07/18 15:50 Pulse 85 11/07/18 15:50 Resp 16 11/07/18 15:50 BP 124/80 11/07/18 15:50 Pulse Ox 99 11/07/18 15:50 Vital Signs Reviewed: Yes Shoulder Course/Dx - Course Course Of Treatment: XR: IMPRESSION: #. High-grade AC joint separation new compared with the prior exam. Discussed results with pt. Placed in a sling and advised to rest and apply ice to his shoulder. Advised to f/u with Orthopedics within 5 days for further treatment - Differential Dx/Diagnosis Provider Diagnosis: Acromioclavicular joint separation Discharge - Sign-Out/Discharge Documenting (check all that apply): Patient Departure All imaging exams completed and their final reports reviewed: Yes - Discharge Plan Condition: Stable Disposition: HOME Patient Education Materials: Acromioclavicular Separation (ED) Referrals: Galileo Turner DO [Primary Care Provider] - Salvador Lambert MD [Medical Doctor] - As Soon As Possible Additional Instructions: If you develop a fever, shortness of breath, chest pain, new or worsening symptoms - please call your PCP or go to the ED immediately. 1) Rest and apply ice to your shoulder to decrease pain and inflammation 2) May take tylenol/ibuprofen as directed for discomfort 3) Use the sling as much as possible 4) Please call Orthopedics at the number below to schedule an appointment within 5 days for further evaluation - Billing Disposition and Condition Condition: STABLE Disposition: Home
== END 2018-11-07 17:04 | disposition home or self-care (01) ==
LOC: UCEAST 15:25
DX: S43.102A Unspecified dislocation of left acromioclavicular joint, initial encounter (principal); W18.00XA Striking against unspecified object with subsequent fall, initial encounter; Y92.019 Unspecified place in single-family (private) house as the place of occurrence of the external cause; F41.9 Anxiety disorder, unspecified; F32.9 Major depressive disorder, single episode, unspecified; F17.210 Nicotine dependence, cigarettes, uncomplicated
CPT/HCPCS: 99211; G0463

== ENCOUNTER 2019-02-14 11:33 | Emergency (ER) | payer OTHER ==
[2019-02-14] MEDS ORDERED: Aspirin 81 mg CHEW TAB* 81 MG TAB.CHEW PO ONE (12:07)
--- NOTE | 2019-02-14 12:07 | UC ---
Shortness of Breath HPI - HPI Summary HPI Summary: 43-year-old male presents with complaints of 3 days of shortness of breath. Is also reporting episodes of palpitations and dizziness. States he has had some pain in his left upper chest, shoulder, and upper arm but has a underlying injury to that shoulder and states he is unable to determine whether this is different than his underlying pain. States he has had some upper respiratory symptoms including a nonproductive cough. Subjective fever. States he has had pneumonia in the past and reports this feels similar to those past episodes. He was hospitalized for pneumonia in 2017. 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 Denies nausea, vomiting , diaphoresis, or edema. - History of Current Complaint Chief Complaint: UCRespiratory Stated Complaint: POSS PNEUMONIA Time Seen by Provider: 02/14/19 11:51 Hx Obtained From: Patient - Allergy/Home Medications Allergies/Adverse Reactions: Allergies Allergy/AdvReac Type Severity Reaction Status Date / Time No Known Allergies Allergy Verified 02/14/19 11:48 PMH/Surg Hx/FS Hx/Imm Hx Cardiovascular History: Other - Transposition of greater vessels Respiratory History: Pneumonia Psychological History: Depression - Surgical History Surgical History: Yes Surgery Procedure, Year, and Place: 3 TOTAL vein surgery rt leg;. open heart surgery as an for transposition of the great vessel & (NO IMPLANTS) ; - Family History Known Family History: Positive: Non-Contributory - Social History Occupation: Disabled Alcohol Use: Weekly Alcohol Amount: 3x/wk Substance Use Type: None Smoking Status (MU): Current Every Day Smoker Type: Cigarettes Amount Used/How Often: 1/2 ppd Have You Smoked in the Last Year: Yes - Immunization History Most Recent Influenza Vaccination: none Most Recent Tetanus Shot: cant remember Most Recent Pneumonia Vaccination: none Review of Systems All Other Systems Reviewed And Are Negative: Yes Constitutional: Positive: Fever - Subjective Skin: Positive: Negative Eyes: Positive: Negative ENT: Positive: Nasal Discharge, Sinus Congestion. Negative: Sore Throat, Ear Ache, Sinus Pain/Tenderness Respiratory: Positive: Shortness Of Breath, Cough Cardiovascular: Positive: Palpitations, Chest Pain Gastrointestinal: Negative: Abdominal Pain, Vomiting, Nausea Genitourinary: Positive: Negative Musculoskeletal: Positive: Negative Neurological: Positive: Negative Is Patient Immunocompromised?: No Physical Exam - Summary Physical Exam Summary: GENERAL APPEARANCE: Well developed, well nourished, alert and cooperative, and appears to be in no acute distress. EYES: Conjunctiva clear. No drainage. EARS: External auditory canals and tympanic membranes clear, hearing grossly intact. NOSE: Mild nasal congestion. No nasal discharge. THROAT: Pharynx normal. No tonsilar inflammation, swelling, exudate, or lesions. Uvula midline. NECK: Neck supple, non-tender without lymphadenopathy. CARDIAC: Normal S1 and S2. No S3, S4 or murmurs. Rhythm is regular. Tachycardic There is no peripheral edema, cyanosis or pallor. Extremities are warm and well perfused. Capillary refill is less than 2 seconds. Peripheral pulses intact. LUNGS: Clear to auscultation without rales, rhonchi, wheezing or diminished breath sounds. ABDOMEN: Positive bowel sounds. Soft, nondistended, nontender. No guarding or rebound. No masses or hepatosplenomegally. MUSKULOSKELETAL: ROM intact to all extremities. No joint erythema or tenderness. Normal muscular development. Normal gait. SKIN: Skin normal color, texture and turgor with no lesions or eruptions. Triage Information Reviewed: Yes Vital Signs: Initial Vital Signs Temp 98.4 F 02/14/19 11:44 Pulse 120 02/14/19 11:44 Resp 20 02/14/19 11:44 BP 118/87 02/14/19 11:44 Pulse Ox 100 02/14/19 11:44 Vital Signs Reviewed: Yes Diagnostics - EKG Summary of EKG Findings: Sinus tachycardia. Rate 136. Possible RADHA in leads II, III, and AVF with reciprical changes in leads V3-V5. Consider early repolarization with the tachycardia. No ectopy noted. Shortness of Breath Dx - Course Course Of Treatment: 43-year-old male presents with complaints of 3 days of shortness of breath. Is also reporting episodes of palpitations and dizziness. States he has had some pain in his left upper chest, shoulder, and upper arm but has a underlying injury to that shoulder and states he is unable to determine whether this is different than his underlying pain. States he has had some upper respiratory symptoms including a nonproductive cough. Subjective fever. States he has had pneumonia in the past and reports this feels similar to those past episodes. He was hospitalized for pneumonia in 2017. 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 Denies nausea, vomiting , diaphoresis, or edema. Afebrile. Tachycardic otherwise vital signs stable. Patient had some mild nasal congestion, tachycardia, S1 and S2 without murmur, clear bilateral breath sounds, no peripheral edema, and otherwise unremarkable exam. EKG showed sinus tachycardia. Rate 136. Possible RADHA in leads II, III, and AVF with reciprical changes in leads V3-V5. Consider early repolarization with the tachycardia. No ectopy noted. I discussed the findings with the patient and have recommended immediate transfer to the emergency room via EMS for further evaluation to which the patient is agreeable. He was given aspirin 324 mg and IV was established. Discussed case with RAIMUNDO Torres in the ED. - Differential Dx/Diagnosis Differential Diagnosis/HQI/PQRI: Bronchitis, WI, Pneumonia, Pulmonary Embolism Provider Diagnosis: Shortness of breath Discharge ED - Sign-Out/Discharge Documenting (check all that apply): Patient Departure All imaging exams completed and their final reports reviewed: No Studies - Discharge Plan Condition: Guarded Disposition: TRANS HIGHER LVL OF CARE FAC Referrals: No Primary Care Phys,NOPCP [Primary Care Provider] - - Billing Disposition and Condition Condition: GUARDED Disposition: Trans Higher Lvl of Care Fac
[2019-02-14 12:22] VITALS: BP 131/80
== END 2019-02-14 12:32 | disposition short-term general hospital (02) ==
LOC: UCEAST 11:33
DX: R06.02 Shortness of breath (principal); R00.0 Tachycardia, unspecified; R42 Dizziness and giddiness; Z95.1 Presence of aortocoronary bypass graft; F17.210 Nicotine dependence, cigarettes, uncomplicated
CPT/HCPCS: 93005; 99213; A9270-GY; G0463

== ENCOUNTER 2019-02-14 12:56 | Observation (INO) | payer OTHER ==
--- NOTE | 2019-02-14 13:11 | ED ---
HPI Chest Pain - HPI Summary HPI Summary: 43 year old M brought in by EMS from [facility] to [facility] accompanied by mother Tania complains of intermittent left sided chest pain, rated 5/10 in severity currently, described as pressure and tightness, radiating to left sided neck and left arm, aggravated by deep breathing and coughing, alleviated by aspirin 324 mg and nitroglycerin 0.4 mg given prior to arrival, with associated shortness of breath, dizziness, fatigue, and occasional headache x3 days. States he was diaphoretic last night. Reports left shoulder pain. States recent injury to left shoulder from falling on to left shoulder 3 months ago after which he dislocated his left shoulder but hasn't had surgery yet d/t hx congenital heart disease. States he is supposed to have physical therapy for it but hasn't been able to make appointments d/t recent stress. Patient denies fever, chills, erythema of eyes, sore throat, cough, abdominal pain, nausea/ vomiting, dysuria, hematuria, myalgia, edema, rash. No FHx stents, cardiac disease. FHx blood clots in back per mother. Patient does not normally use nasal cannula O2. Admits to smoking cigarettes and drinking alcohol. - History of Current Complaint Chief Complaint: EDChestPainROMI Time Seen by Provider: 02/14/19 13:00 Hx Obtained From: Patient Onset/Duration: Started Days Ago - 3, Still Present Timing: Intermittent Current Severity: Moderate Pain Intensity: 5 Pain Scale Used: 0-10 Numeric Chest Pain Location: Left Anterior Chest Pain Radiates: Yes Chest Pain Radiates To:: Arm - left, Neck - left Character: Pressure/Squeezing, Tightness Aggravating Factor(s): Other: - deep breathing and coughing Alleviating Factor(s): Other: - aspirin 324 mg and nitroglycerin 0.4 mg given prior to arrival Associated Signs and Symptoms: Positive: Negative - fever, chills, erythema of eyes, sore throat, cough, abdominal pain, nausea/vomiting, dysuria, hematuria, myalgia, edema, rash, Other: - shortness of breath, dizziness, fatigue, and occasional headache, left shoulder pain, diaphoresis - Additional Pertinent History Primary Care Physician: [id number] - Allergy/Home Medications Allergies/Adverse Reactions: Allergies Allergy/AdvReac Type Severity Reaction Status Date / Time No Known Allergies Allergy Verified 02/14/19 11:48 PMH/Surg Hx/FS Hx/Imm Hx Endocrine/Hematology History: Denies: Hx Diabetes Cardiovascular History: Reports: Hx Congenital Heart Disease - transposition of vessels, Other Cardiovascular Problems/Disorders - PVD, possibly PAD Denies: Hx Angina, Hx Coronary Artery Disease, Hx Hypercholesterolemia, Hx Hypertension, Hx Myocardial Infarction, Hx Pacemaker/ICD, Hx Valvular Heart Disease Respiratory History: Reports: Other Respiratory Problems/Disorders - PULMONARY HYPERTENSIVE ARTERIAL DISEASE Denies: Hx Asthma, Hx Chronic Obstructive Pulmonary Disease (COPD) Musculoskeletal History: Reports: Hx Arthritis, Hx Back Problems, Hx Orthopedic Injury, Other Musculoskeletal History - tarsal tunnel Sensory History: Denies: Hx Contacts or Glasses, Hx Hearing Aid Opthamlomology History: Denies: Hx Contacts or Glasses Psychiatric History: Reports: Hx Anxiety, Hx Depression, Hx Panic Disorder - Surgical History Surgery Procedure, Year, and Place: 3 TOTAL vein surgery rt leg;. open heart surgery as an for transposition of the great vessel & (NO IMPLANTS) ; Hx Anesthesia Reactions: No Infectious Disease History: No Infectious Disease History: Denies: Traveled Outside the [place] in Last 30 Days - Family History Known Family History: Negative: Cardiac Disease - Social History Alcohol Use: Weekly Alcohol Amount: 3x/wk Substance Use Type: Reports: None Hx Tobacco Use: Yes Smoking Status (MU): Current Every Day Smoker Type: Cigarettes Amount Used/How Often: 1/2 ppd Have You Smoked in the Last Year: Yes Review of Systems Positive: Fatigue. Negative: Fever, Chills Negative: Erythema Negative: Sore Throat Positive: Chest Pain Positive: Shortness Of Breath. Negative: Cough Negative: Abdominal Pain, Vomiting, Nausea Negative: dysuria, hematuria Positive: Other - left sided neck pain, left arm pain, left shoulder pain. Negative: Myalgia, Edema Negative: Rash Neurological: Other - Dizziness Positive: Headache All Other Systems Reviewed And Are Negative: Yes Physical Exam - Summary Physical Exam Summary: Constitutional: Well-developed, Well-nourished, Alert. He appears uncomfortable. Skin: Warm, Dry HENT: Normocephalic; Atraumatic Eyes: Conjunctiva normal Neck: Musculoskeletal ROM normal neck. (-) JVD, (-) Stridor, (-) Tracheal deviation Cardio: Rhythm regular, rate normal, Heart sounds normal; Intact distal pulses; The pedal pulses are 2+ and symmetric. Radial pulses are 2+ and symmetric. (-) Murmur Pulmonary/Chest wall: Effort normal. (-) Respiratory distress, (-) Wheezes, (-) Rales Abd: Soft, (-) tenderness, (-) Distension, (-) Guarding, (-) Rebound Musculoskeletal: (-) Edema Lymph: (-) Cervical adenopathy Neuro: Alert, Oriented x3 Psych: Mood and affect Normal Triage Information Reviewed: Yes Vital Signs On Initial Exam: Initial Vitals Temp Pulse Resp BP Pulse Ox 98.1 F 135 18 98/81 99 02/14/19 13:00 02/14/19 13:00 02/14/19 13:00 02/14/19 13:00 02/14/19 13:00 Vital Signs Reviewed: Yes Procedures - Sedation Patient Received Moderate/Deep Sedation with Procedure: No Diagnostics - Vital Signs Vital Signs Temp Pulse Resp BP Pulse Ox 02/14/19 13:00 98.1 F 135 18 98/81 99 - Laboratory Result Diagrams: 02/14/19 13:14 02/14/19 13:14 Lab Statement: Any lab studies that have been ordered have been reviewed, and results considered in the medical decision making process. - Radiology CXR Radiology Interpretation Completed By: Radiologist Summary of Radiographic Findings: NO ACTIVE CARDIOPULMONARY DISEASE. ED physician has reviewed this report. - CT CTA Chest CT Interpretation Completed By: Radiologist Summary of CT Findings: NO PULMONARY ARTERIAL FILLING DEFECT TO SUGGEST PULMONARY EMBOLISM. ED physician has reviewed this report. - EKG 1255 Cardiac Rate: Tachycardia - 135 BPM EKG Rhythm: Sinus Tachycardia Summary of EKG Findings: T wave inversions in V2-V5 Re-Evaluation - Re-Evaluation First Eval Re-Evaluation Time: 19:23 Change: Unchanged Comment: aware of lactic 2.6 Second Eval Re-Evaluation Time: 19:41 Change: Unchanged Comment: patient agreeable to admission Chest Pain Course/Dx - Course Course Of Treatment: 43 year old M from [facility] complains of intermittent left sided chest pain radiating to left sided neck and left arm with associated shortness of breath, dizziness, fatigue, occasional headache, left shoulder pain x3 days. 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 Hx congenital heart disease. Admits to smoking and drinking. Upon exam, the patient appears uncomfortable. Bloodwork results with no significant abnormalities except for MCV 95, MCH 33, absolute monos 1.1, glucose 103. Troponin I 0.01. EKG shows sinus tachycardia at 135 BPM and T wave inversions in V2-V5. CXR shows, per radiologist: NO ACTIVE CARDIOPULMONARY DISEASE. Chest CTA shows, per radiologist: NO PULMONARY ARTERIAL FILLING DEFECT TO SUGGEST PULMONARY EMBOLISM. Troponin II 0.01. Repeat bloodwork shows lactic acid 2.6. In the ED course, the patient was given normal saline 3 L IV. He was also given a Duoneb treatment and Toradol 30 mg IV. The etiology of his sx are unclear. Considered viral. There were no particular findings for pericarditis or pulmonary embolism. I do not suspect SD. Dr. Hanley, cardiology, recommends admission for further workup. Spoke with Dr. Lopez, hospitalist, agrees to admit patient. The patient will be admitted to the hospitalist because his tachycardia persisted at 130s BPM despite receiving 3 L fluids. He is agreeable to admission. - Diagnoses Provider Diagnoses: Chest pain, Sinus tachycardia - Provider Notifications Discussed Care Of Patient With: Justen Hanley Time Discussed With Above Provider: 19:15 Instructed by Provider To: Other - Dr. Hanley, cardiology, recommends admission. Spoke with Dr. Lopez, hospitalist, agrees to admit patient 19:33. Discharge ED - Sign-Out/Discharge Documenting (check all that apply): Patient Departure - Admit - Discharge Plan Condition: Fair Disposition: ADMITTED TO [facility] Referrals: [facility] [Outside] Additional Instructions: Follow up with [facility] in 3 days. Return to the Emergency Department for changing or worsening symptoms. - Attestation Statements Document Initiated by Scribe: Yes Documenting Scribe: Darlene Lynch Provider For Whom Scribe is Documenting (Include Credential): Oneil Solis MD Scribe Attestation: Darlene Shaikh, scribed for Oneil Solis MD on 02/14/19 at 1935. Status of Scribe Document: Ready
[2019-02-14 13:30] LABS: ABS Eosinophils 0.1 10^3/ul (0-0.6); ABS Lymphocytes 1.2 10^3/ul (1.0-4.8); ABS Monocytes 1.1 10^3/ul (0-0.8); ABS Neutrophils 4.4 10^3/ul (1.5-7.7); Eosinophil % 0.8 %; Hematocrit 42 % (42-52); Hemoglobin 14.7 g/dL (14.0-18.0); Lymphocyte % 17.9 %; Mean Corpuscular HGB Conc 35 g/dL (31-36); Mean Corpuscular Hemoglobin 33 pg (27-31); Mean Corpuscular Volume 95 fL (80-94); Mean Platelet Volume 7.9 fL (7.4-10.4); Nucleated Red Blood Cells % 0.1; Platelet Count 224 10^3/uL (150-450); Red Blood Count 4.45 10^6 /uL (4.18-5.48); Red Cell Distribution Width 13 % (10-15); White Blood Count 6.7 10^3/uL (3.5-10.8)
[2019-02-14] MEDS ORDERED: Ketorolac INJ* 30 MG/ML 1 ML VIAL IV PUSH ONE (13:30)
[2019-02-14] MEDS ORDERED: Albuterol/Ipratropium NEB.SOL* Albuterol 2.5 MG/Ipratropium 0.5 MG 3 ML INH ONE (13:30)
[2019-02-14 13:45] LABS: Activated Partial Thrombo Time 30.3 seconds (26.0-38.0); INR 1.03 (0.82-1.09)
[2019-02-14 13:48] LABS: Albumin 4.2 g/dL (3.2-5.2); Albumin/Globulin Ratio 1.9 (1-3); Calcium 9.6 mg/dL (8.6-10.3); EGFR African American 97.8 (>60); EGFR Non-African American 80.8 (>60); Globulin 2.2 g/dL (2-4); Potassium 3.8 mmol/L (3.5-5.0); Total Bilirubin 0.7 mg/dL (0.2-1.0); Total Protein 6.4 g/dL (6.4-8.9)
[2019-02-14 13:50] LABS: Troponin I 0.01 ng/mL (<0.04)
[2019-02-14] MEDS ORDERED: Iohexol 350* (CONTRAST) 500 ML MDV IV ONE (13:58)
[2019-02-14] MEDS: NS 0.9% 1000 ML** 2,000 ML IV ONE ×2 (17:03→17:06)
[2019-02-14 19:27] LABS: Urine Benzodiazepine Screen None Detected (None Detect); Urine Opiates Screen None Detected (None Detect)
[2019-02-14 19:29] LABS: Urine Appearance Clear; Urine Bilirubin Negative (Negative); Urine Blood Negative (Negative); Urine Color Straw; Urine Glucose Negative (Negative); Urine Ketones Negative (Negative); Urine Nitrite Negative (Negative); Urine Protein Negative (Negative); Urine Specific Gravity 1.018 (1.010-1.030); Urine Urobilinogen Negative (Negative)
[2019-02-14 19:37] LABS: C Reactive Protein 7.59 mg/L (<8.01)
[2019-02-14 19:46] LABS: TSH (Thyroid Stimulating Horm) 2.53 mcIU/mL (0.34-5.60)
[2019-02-14 19:48] LABS: Free T4 1.05 ng/dL (0.61-1.12)
[2019-02-14] MEDS ORDERED: oxyCODONE/Acetamin 5/325 MG* TAB PO ONE (21:51)
[2019-02-14 22:07] LABS: Influenza A Molecular NEGATIVE (Negative); Influenza B Molecular NEGATIVE (Negative)
[2019-02-14] MEDS ORDERED: Levalbuterol 0.63MG/3ML NEB* UNIT OF USE INH PRN (22:34)
[2019-02-14] MEDS ORDERED: Ipratropium 0.5MG/2.5ML NEB* 0.5 MG/2.5 ML NEB.SOLN INH PRN (22:34)
[2019-02-15] MEDS: predniSONE TAB* 20 MG PO SCH ×2 (00:43→09:08)
[2019-02-15] MEDS: NS 0.9% 1000 ML** 1,000 ML IV SCH ×2 (01:00→11:08)
[2019-02-15] MEDS ORDERED: Acetaminophen TAB* 325 MG PO PRN (01:13)
[2019-02-15] MEDS: Levalbuterol 0.63MG/3ML NEB* UNIT OF USE INH SCH ×2 (01:15→09:16)
[2019-02-15] MEDS: Ipratropium 0.5MG/2.5ML NEB* 0.5 MG/2.5 ML NEB.SOLN INH SCH ×2 (01:15→09:16)
--- NOTE | 2019-02-15 03:18 | HP ---
ADMISSION HISTORY AND PHYSICAL: DATE OF ADMISSION: 02/14/19 CHIEF COMPLAINT: Chest pain. HISTORY OF PRESENT ILLNESS: This is a 43-year-old male with past medical history of transposition of great vessels, status post 2 surgeries to correct, history of depression, chronic pain syndrome, came in today due to left-sided chest pain, rated at 5/10 in intensity, described as pressure and tightness, radiating to his left neck and left arm, and accompanied by difficulty breathing , coughing, which is dry cough, dizziness, and fatigue. He says that prior to arrival he received aspirin and nitroglycerin, which seemed to have helped with the pain. He initially attributed his pain to his left shoulder, which he injured recently after a fall and is being considered for surgical correction, but due to his prior heart disease they have not yet decided, and he is supposed to be getting some physical therapy for that. He otherwise denies any other fever, chills, although he did have an episode of diaphoresis yesterday evening when he was sweating profusely and felt as if he was feverish. He denies any other nausea, vomiting, abdominal pain, urinary burning sensation or pain with urination. PAST MEDICAL HISTORY: As mentioned, history of transposition of great arteries diagnosed at , initially had surgery at age 1, which was a Norberto-Ruby atrial septostomy and at age 18 months he underwent Mustard procedure at [facility]. He was told he had some leaky valve and some murmurs. He also has depression and anxiety, chronic back pain, and has tibial tendonitis and tarsal tunnel syndrome. PAST SURGICAL HISTORY: As mentioned, the 2 cardiac surgeries at 3 days of age and at the 18 months of age, and also 3 right leg vein surgery. HOME MEDICATIONS: The patient is currently on citalopram 20 mg every morning. ALLERGIES: No known drug allergies. FAMILY HISTORY: The patient's mother is around age 65, is alive and well, without any medical problems. Father at age 51 due to leukemia complications. SOCIAL HISTORY: The patient does have a history of smoking about half a pack per day for the last 20 years. Denies any alcohol or drug use. Does take a beer on occasions. He lives alone and designates his sister, Carmel, as his healthcare proxy. Otherwise he is a full code. REVIEW OF SYSTEMS: A 14-point review of systems did not reveal any new information other than what is mentioned in the HPI. PHYSICAL EXAMINATION GENERAL: The patient is awake, alert, oriented x3, did not appear to be in any acute respiratory distress. VITAL SIGNS: In the ER, BP was noted to be 112/80, temperature 98.1, heart rate 130, respiration rate 16, saturating 100% on room air. HEAD AND NECK: Atraumatic, normocephalic. Bilateral pupils are reactive. Oral mucosa is moist. NECK: Supple. No jugular venous distention. LUNGS: The patient did have intermittent wheezing noted but otherwise was clear with good air entry. HEART: S1 and S2 regular, tachycardic. ABDOMEN: Soft, nontender, and nondistended. EXTREMITIES: No cyanosis, clubbing or edema. DIAGNOSTIC STUDIES/LAB DATA: CBC was unremarkable. Coagulation profile was unremarkable. Comprehensive metabolic panel was unremarkable, except for minimally elevated lactic acid at 2.6. Urinalysis was negative for any leukocyte esterase or nitrites. Urine drug screen was negative. Influenza A and B were both negative. CTA of the chest showed no pulmonary filling defect and otherwise clear lungs and pleura, and the heart was otherwise unremarkable. EKG shows sinus tachycardia at 150 beats per minute with some ST changes. When compared to his old EKG from 2017, tachycardia is new, the ST changes were still present minimally, especially in the lateral leads, but not as pronounced as today's EKG. IMPRESSION: This is a 43-year-old gentleman with history of smoking and history of major cardiac surgery at due to transposition of his great vessels, who came in due to chest pain and was also noted to have some wheezing , received some nebs, and has been tachycardic since then. ASSESSMENT: 1. Chest pain, rule out any acute coronary syndrome: We will consult Cardiology to evaluate the patient. In the mean-time, we will get an echocardiogram. Stress test would be scheduled per medical genetics director as the patient is still tachycardic. 2. Shortness of breath: Questionable component of chronic obstructive pulmonary disease, especially given his smoking history. For now, we will start the patient on Xopenex and Atrovent along with some prednisone. The patient should be considered for outpatient pulmonary function test to diagnose any chronic obstructive pulmonary disease. The patient has been advised on smoking cessation as it is not a good combination, especially his history of cardiac surgery. 3. History of depression and anxiety: Restart home medications. 4. DVT prophylaxis with sequential compression device. 5. Code status: Full code. [id number]/[facility] #: [id number] [facility]
[2019-02-15 04:48] LABS: ABS Lymphocytes 0.6 10^3/ul (1.0-4.8); ABS Monocytes 0.3 10^3/ul (0-0.8); Eosinophil % 0.3 %; Hematocrit 40 % (42-52); Lymphocyte % 6.4 %; Mean Corpuscular HGB Conc 35 g/dL (31-36); Mean Corpuscular Hemoglobin 33 pg (27-31); Mean Corpuscular Volume 96 fL (80-94); Mean Platelet Volume 8.1 fL (7.4-10.4); Platelet Count 180 10^3/uL (150-450); Red Blood Count 4.21 10^6 /uL (4.18-5.48); Red Cell Distribution Width 13 % (10-15)
[2019-02-15 05:06] LABS: BUN/Creatinine Ratio 14.1 (8-20); Calcium 8.6 mg/dL (8.6-10.3); EGFR African American 98.9 (>60); EGFR Non-African American 81.7 (>60); Potassium 4.3 mmol/L (3.5-5.0)
[2019-02-15] MEDS: oxyCODONE/Acetamin 5/325 MG* TAB PO PRN ×2 (09:11→18:48)
[2019-02-15] MEDS ORDERED: Adenosine* 3 MG/ML VIAL IV PUSH ONE (11:57)
[2019-02-15] MEDS ORDERED: Digoxin IV* 0.5 MG/2 ML AMP (0.25 MG/ML) IV SLOW PU ONE ×3 (12:31→20:48)
[2019-02-15] MEDS ORDERED: Apixaban* 5 MG TAB PO ONE (12:35)
[2019-02-15 12:50] LABS: C Reactive Protein 12.59 mg/L (<8.01)
[2019-02-15] MEDS ORDERED: Metoprolol Tartrate IV* 1 MG/ML 5 ML VIAL IV ONE (13:31)
[2019-02-15 13:45] LABS: Erythrocyte Sed Rate 8 mm/Hr (0-14)
--- NOTE | 2019-02-15 14:17 | CONS ---
CARDIOLOGY CONSULTATION: DATE OF CONSULT: REASON FOR EVALUATION: Chest pain, tachycardia. DICTATION ENDS ABRUPTLY [id number]/[facility] #: [id number] This session was interrupted; full dictation pending in another session.. RAKESH
--- NOTE | 2019-02-15 14:43 | CONS ---
CC: Dr. Koffi Blas, [place]; Dr. Justen Hanley CARDIOLOGY CONSULTATION: DATE OF CONSULT: 02/15/19 REQUESTING PHYSICIAN: Dr. Robles. REASON FOR EVALUATION: Tachycardia, chest pain, congenital heart disease. HISTORY OF PRESENT ILLNESS: This is a 43-year-old gentleman with a history of congenital transposition of great arteries, status post surgical correction with a Mustard procedure at 18 months of age. He has been followed by Dr. Koffi Blas at [facility] in [place]. He has been limited by musculoskeletal issues and uses a cane to walk short distances. He is able to walk at baseline a few blocks before stopping due to leg discomfort. He noted that earlier this week on 02/12/19, he awoke and felt more tired, fatigued and short of breath. His symptoms improved somewhat over the course of , but then was worse again night. Because of shortness of breath, fatigue, cough, chills and sweats on night, he went to the [facility] on Sunday and he was transferred to the emergency room. In the emergency room, he was noted to have a tachycardia in the 120s to 130s. He had a CTA that was negative and he was admitted for further evaluation and treatment. He also has a history of tobacco use, moderate alcohol use and had had chest pain on and off over the last few days. He said it was left-sided, pleuritic and at first he attributed it to his old shoulder injury, but realized that it was worse with coughing and inspiration and it was left pectoral. He also has a history of palpitations over the last more than 20 years. He says he had 1 episode that was terminated with a medicine in the ER 20 years ago and provoked by caffeine. Since then, he has avoided caffeine and has 1 episode of racing heartbeat about once every 2 months. He says it usually goes away pretty promptly with some deep breathing or Valsalva maneuvers. He discussed that with Dr. Blas at his last visit 5 months ago and they were anticipating possible event monitor, but it became more frequent in occurrence. He does say when he has these episodes he does feel more short of breath and tired. Of note, he had a fall a few months ago and injured his left shoulder. He was seen by the orthopedist and was considered for surgery, but apparently it was decided to go with conservative management due to his underlying heart situation. He was supposed to do physical therapy, but has not started that yet. He denies orthopnea. He does have a nonproductive cough and pleuritic chest pain. He has not documented his temperature. He denies diarrhea, dysuria. No orthopnea. No peripheral edema. PAST MEDICAL HISTORY: Includes transposition of great arteries, diagnosed at . He had apparently intervention shortly after according to chart note from yesterday with a Norberto atrial septostomy and at 18 months he underwent a Mustard procedure according to the chart at [facility], although the patient is not sure about the name of the first procedure or the location of the second procedure. He has a history of tarsal tunnel surgery and Dr. Fonseca has decided to manage him conservatively. He has also had some vein problems and has been followed by Vascular at [facility] with Dr. Alvares as well as he has had imaging with Dr. Storm here at [facility]. CTA in April of 2017 revealed mild atherosclerosis of the aorta and absence of the superficial femoral arteries bilaterally either occluded or absent. His past medical history includes congenital heart disease. He had an echo in June of 2016, which revealed an EF lower limits of normal 50% to 55%, RV was thickened, wall thickness was thickened and moderately dilated, mildly reduced LV function, flattened end systole and diastole consistent with right ventricular pressure volume overload, RA is moderate to severely dilated, aortic valve not well visualized, mild MR, moderate TR, moderate pulmonary hypertension, ascending aorta was not well visualized, no dilatation of the aortic arch, congenitally corrected transposition of the great arteries, little change compared to September of 2013, and the PA pressure was estimated at 59. 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 He did have nuclear stress test with pharmacologic stress in June of 2013, which revealed an EF of 44%. PAST SURGICAL HISTORY: Includes the 2 congenital heart surgeries at 3 days of age and 18 months of age, 3 right leg vein surgeries. ALLERGIES: No known allergies. Medication: Citalapram 20 mg qd as outpatient. xophenex, prednisone 60m qd, as an inpatient. FAMILY HISTORY: His mother is alive at 65. Father of leukemia. He has a sister and a brother, who are alive and well. 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 He says he is under some financial stress at home. He denies caffeine use. He does smoke about a half a pack per day and he says he has 3 to 4 beers a few times a week, last had alcohol a week ago. He is and has 1 child. REVIEW OF SYSTEMS: Review of systems x10 was negative except as above. PHYSICAL EXAM: He is a well-developed, well-nourished gentleman, in no apparent distress. Blood pressure 117/81, heart rate 124. Atraumatic, normocephalic. Extraocular muscles intact. Sclerae anicteric. There is JVD of approximately 8 to 10 cm. Carotids 2+ without bruits. Cardiac Exam: PMI was somewhat diffuse. Tachycardic. There is S1 with what appeared to be a fixed split S2 and a prominent S2. 2/6 systolic murmur at the left sternal border and left lower sternal border. The left lower sternal border murmur appeared to increase with inspiration. There appeared to be a gallop rhythm as well. Chest was clear. No CVAT. Abdominal Exam: Bowel sounds present. Nontender. No hepatosplenomegaly. Femoral pulses intact without bruits. Distal pulses were diminished and his feet were cool. Negative Homans sign. No edema. Motor strength 5/5 bilaterally. Deep tendon reflexes 2/4. Alert and oriented x3. DIAGNOSTIC STUDIES/LAB DATA: Labs include MCV of 96, hemoglobin of 14, hematocrit of 40, sed rate pending. Sodium 138, potassium of 4.3, bicarb of 20 , BUN of 14, creatinine of 0.99. CRP pending. Troponin is 0.01 and 0.01 last night. BNP mildly elevated at 217. INR of 1. Tox screen negative. His thyroid function was tested. His TSH was 2.53. EKG from today at 9:25 revealed narrow complex tachycardia with right axis deviation, possible RVH and lateral ST-T depressions, possible atypical flutter or SVT versus sinus tachycardia. His previous EKG from 02/23/17 revealed sinus rhythm with right axis deviation, RVH and similar lateral ST depressions consistent with RV strain. He had a CTA performed last night, which revealed no pulmonary artery defects to suggest pulmonary embolism and it was felt that the heart was unremarkable. Chest x-ray: No clear infiltrates. A bedside rhythm strip was obtained while adenosine was administered 6 mg. It revealed slowing of the ventricular response and underlying flutter waves consistent with atypical flutter. IMPRESSION AND PLAN: My impression is that Mr. Gibson has history of complex congenital heart disease, status post surgical correction with a Mustard procedure and now has pleuritic chest pain, nonproductive cough, shortness of breath and fatigue. He also has what appears to be atypical flutter with a rapid ventricular response, which may be contributing to his decompensation. It is unclear whether the progression of his underlying congenital heart disease has provoked worsening arrhythmias and LV and RV function or whether he has a concomitant viral infection that may have resulted in arrhythmia. He could also have pericarditis. The patient is also at risk for coronary insufficiency on the basis of his congenital heard disease and atherosclerosis given his risk factors. Of note, he has negative troponins and atypical chest discomfort which makes ischemia less likely. I did discuss my findings and recommendations frankly with him and the team including Dr. Robles and Dr. Moscoso. For the time being, I would recommend the followin. I suggested we attempt to control his rate cautiously with IV metoprolol, IV digoxin and if necessary IV diltiazem. 2. If he fails to convert to sinus rhythm, we could consider an attempt to cardioversion with CONY guidance on anticoagulation. 3. Given history of atrial flutter and complex congenital heart disease, I would suggest anticoagulation. 4. I would suggest maintaining his potassium over 4. 5. I strongly advised him to avoid caffeine, alcohol and to discontinue tobacco use, all which may be contributing to a morbidity mortality and RV dysfunction. 6. He is to have a repeat echo. 7. He understands the alcohol puts him at risk for cardiomyopathy, worsening LV dysfunction due to his underlying ventricular dysfunction. 8. I also explained that once we have more data we will coordinate with Dr. Blas to see if any other interventions are required. He understands the potential need for interventions for his arrhythmia and for progression of his underlying congenital heart disease including possible reoperation or transplant if he develops ventricular failure and severe pulmonary hypertension. 9. I would suggest adding a sed rate, CRP as you are doing. [id number]/[facility] #: [id number] RAKESH
[2019-02-15] MEDS: Diltiazem IV BAG* D5W Premix 125 MG/125 ML BAG IV SCH (15:08)
[2019-02-15] MEDS: Citalopram TAB* 20 MG PO SCH (16:28)
--- NOTE | 2019-02-15 16:45 | CONS ---
CARDIOLOGY CONSULTATION: DATE OF CONSULT: 02/15/19 ADDENDUM: MEDICATIONS: Include: 1. Atrovent. 2. Xopenex. 3. Percocet 5/325 q.6 p.r.n. 4. Prednisone 60 mg daily. 5. Sodium chloride 100 cc an hour. As an outpatient, his medications included citalopram 20 mg q.a.m. His CRP came back elevated at 12.59. [id number]/[facility] #: [id number]
--- NOTE | 2019-02-15 17:06 | PN ---
Subjective Date of Service: 02/15/19 Interval History: This AM no SOB at rest but left should with pain and "tightness" over precordium Chest pain also with coughing No other complaints Objective Active Medications: Acetaminophen (Tylenol Tab*) 650 mg PO Q6H PRN PRN Reason: PAIN - MILD Apixaban (Eliquis*) 5 mg PO BID [facility] Citalopram Hydrobromide (Celexa Tab*) 20 mg PO QAM [facility] Last Admin: 02/15/19 16:28 Dose: 20 mg Sodium Chloride (Ns 0.9% 1000 Ml) 1,000 mls @ 100 mls/hr IV PER RATE [facility] Last Admin: 02/15/19 11:08 Dose: 100 mls/hr Diltiazem/Dextrose (Cardizem Iv D5w Bag* Premix) 125 mg in 125 mls @ 5 mls/hr IV .PER PROTOCOL [facility]; Protocol Last Admin: 02/15/19 15:08 Dose: 5 mls/hr Ipratropium Watkins (Atrovent 0.5 Mg Neb.Dalila*) 0.5 mg INH Q4H PRN PRN Reason: SOB/WHEEZING Levalbuterol HCl (Xopenex 0.63mg/3ml Neb*) 0.63 mg INH Q6H PRN PRN Reason: SOB/WHEEZING Oxycodone/Acetaminophen (Percocet 5/325 Tab*) 1 tab PO Q6H PRN PRN Reason: PAIN - MODERATE Last Admin: 02/15/19 09:11 Dose: 1 tab Prednisone (Deltasone Tab*) 60 mg PO DAILY [facility] Last Admin: 02/15/19 09:08 Dose: 60 mg Vital Signs - 8 hr 02/15/19 02/15/19 02/15/19 09:11 11:05 11:08 Temperature 97.5 F Pulse Rate 126 Respiratory 18 18 16 Rate Blood Pressure 106/76 (mmHg) O2 Sat by Pulse 94 Oximetry 02/15/19 02/15/19 02/15/19 12:20 13:04 14:34 Temperature Pulse Rate 128 128 127 Respiratory 19 Rate Blood Pressure 117/83 112/87 (mmHg) O2 Sat by Pulse 97 Oximetry 02/15/19 02/15/19 02/15/19 14:45 14:49 15:00 Temperature 98.1 F Pulse Rate 128 128 128 Respiratory 17 17 15 Rate Blood Pressure 111/87 111/87 110/84 (mmHg) O2 Sat by Pulse 96 98 97 Oximetry 02/15/19 02/15/19 02/15/19 15:15 15:30 15:45 Temperature Pulse Rate 127 127 127 Respiratory 20 16 22 Rate Blood Pressure 116/87 110/80 115/75 (mmHg) O2 Sat by Pulse 98 97 97 Oximetry 02/15/19 02/15/19 02/15/19 16:00 16:15 16:28 Temperature 98 F Pulse Rate 96 93 95 Respiratory 19 13 Rate Blood Pressure 118/80 113/74 (mmHg) O2 Sat by Pulse 95 95 Oximetry 02/15/19 02/15/19 16:30 16:45 Temperature Pulse Rate 99 85 Respiratory 29 17 Rate Blood Pressure 124/79 120/78 (mmHg) O2 Sat by Pulse 97 96 Oximetry Oxygen Devices in Use Now: None Appearance: well appearing, NAD Eyes: No Scleral Icterus, PERRLA Ears/Nose/Mouth/Throat: NL Teeth, Lips, Gums, Clear Oropharnyx Neck: NL Appearance and Movements; NL JVP Respiratory: Symmetrical Chest Expansion and Respiratory Effort, Clear to Auscultation Cardiovascular: NL Sounds; No Murmurs; No JVD, - - early RAJAN LUSB Abdominal: NL Sounds; No Tenderness; No Distention, No Hepatosplenomegaly Extremities: No Edema Skin: No Rash or Ulcers Neurological: Alert and Oriented x 3 Result Diagrams: 02/15/19 04:29 02/15/19 04:29 Microbiology and Other Data: Microbiology 02/14/19 16:11 Aerobic Blood Culture - Preliminary Blood Venous No Growth Day 1 Anaerobic Blood Culture - Preliminary No Growth Day 1 02/14/19 13:14 Aerobic Blood Culture - Preliminary Blood Venous No Growth Day 1 Anaerobic Blood Culture - Preliminary No Growth Day 1 Assess/Plan/Problems-Billing Assessment: 43 yo M h/o transposition of the great vessels s/p 2 surgeries as pw CP, cough, SOB found with new onset aflutter - Patient Problems (1) Atrial flutter Comment: Adenosine 6 mg on 4S today with identification of aflutter Received digoxin 0.25 mcg and 0.125 today Did not respond to metoprolol 5mg IV Transferred to ICU and placed on cardizem gtt with good control of rate Discussed with cardiology. May need CONY cardioversion. Attempt to get his cardiology records TTE pending Considered high risk on cardizem gtt given his cardiac anatomy/physiology s/p operations Started Apixaban (2) Chest pain Comment: improved with rate control pericarditis on ddx although ESR normal and CRP and nominally elevated Pain improved with prednisone. Will continue until TTE tomorrow (3) Shortness of breath Comment: Resolved with better rate control (4) Shoulder pain Comment: known injury tylenol PRN (5) DVT prophylaxis Comment: apixaban (6) Depression Comment: citalopram
--- NOTE | 2019-02-15 20:26 | CONS ---
CARDIOLOGY CONSULTATION: ADDENDUM: DATE OF CONSULT: 02/15/19 I was able to locate records from Dr. Koffi Blas from a consultation he performed on Mr. Gibson on 09/17/13. At that time, he commented that he had congenital d- transposition of the great arteries with intact ventricular septum status post: balloon atrial septostomy on 01/02/74 and a Norberto-Ruby closed atrial septectomy on 01/03/74. Mustard procedure using a pericardial baffle to divert coronary sinus to systemic venous atrial side on 06/15/75. At his evaluation in September 2013, he had an echocardiogram, which revealed a right dominant picture with a pancake left ventricle and some systolic anterior mitral leaflet motion but without significant LVOT gradient leading to the pulmonary valve. He also reported that his last catheterization up until that point had been performed on 04/12/79 and demonstrated an excellent result from both the hemodynamic and electrophysiologic standpoint and he was last seen in the pediatric cardiology office on 12/02/93 prior to following up again in September 2013. It was recommended that he have a cardiac MRI, which according to the patient was performed, although I do not have the results. It was also recommended that he return in a year. He had been having some palpitations and there was some concern that this could be atrial or less likely ventricular arrhythmia and there was going to be consideration of an event monitor if he had more frequent symptoms. [id number]/[facility] #: [id number] MTDD
[2019-02-15] MEDS ORDERED: NS 0.9% 1000 ML** 1,000 ML IV SCH (20:47)
[2019-02-16] MEDS: oxyCODONE/Acetamin 5/325 MG* TAB PO PRN (02:53)
[2019-02-16] MEDS: Diltiazem IV BAG* D5W Premix 125 MG/125 ML BAG IV SCH (05:37)
[2019-02-16] MEDS: Citalopram TAB* 20 MG PO SCH (08:31)
[2019-02-16] MEDS: predniSONE TAB* 20 MG PO SCH (08:32)
[2019-02-16] MEDS ORDERED: Apixaban* 5 MG TAB PO SCH (09:00)
[2019-02-16] MEDS ORDERED: Digoxin IV* 0.5 MG/2 ML AMP (0.25 MG/ML) IV SLOW PU ONE (09:08)
[2019-02-16] MEDS ORDERED: Metoprolol Tartrate IV* 1 MG/ML 5 ML VIAL IV ONE (09:09)
[2019-02-16] MEDS ORDERED: Aspirin TAB* 325 MG PO ONE (09:10)
[2019-02-16] MEDS ORDERED: Aspirin TAB* 325 MG PO PRN (09:10)
[2019-02-16] MEDS ORDERED: Diltiazem IV BAG* D5W Premix 125 MG/125 ML BAG IV SCH (09:10)
[2019-02-16 10:13] LABS: ABS Lymphocytes 0.9 10^3/ul (1.0-4.8); ABS Monocytes 0.5 10^3/ul (0-0.8); ABS Neutrophils 10.3 10^3/ul (1.5-7.7); Eosinophil % 0.3 %; Hematocrit 38 % (42-52); Hemoglobin 12.6 g/dL (14.0-18.0); Lymphocyte % 7.6 %; Mean Corpuscular HGB Conc 34 g/dL (31-36); Mean Corpuscular Hemoglobin 33 pg (27-31); Mean Corpuscular Volume 98 fL (80-94); Mean Platelet Volume 7.5 fL (7.4-10.4); Platelet Count 183 10^3/uL (150-450); Red Blood Count 3.84 10^6 /uL (4.18-5.48); Red Cell Distribution Width 13 % (10-15); White Blood Count 11.7 10^3/uL (3.5-10.8)
[2019-02-16 10:31] LABS: BUN/Creatinine Ratio 15.1 (8-20); Calcium 8.8 mg/dL (8.6-10.3); EGFR African American 116.4 (>60); EGFR Non-African American 96.2 (>60); Magnesium 1.8 mg/dL (1.9-2.7); Potassium 3.7 mmol/L (3.5-5.0)
--- NOTE | 2019-02-16 11:04 | ECHO ---
*[facility]* [place] [address] Fax #: [phone] Transthoracic Echocardiogram Patient: Chele Gibson : 1975 Study Date: 02/16/2019 Age: 43 Gender: M HR: 63 bpm Height: 72 in /182.9 cm BSA: 2.02 m^2 Weight: 176.6 lb /80.3 kg BMI: 24 kg/m^2 *Milk Vendor: Magy Nolasco [facility] *Referring Physician: * Justen Hanley MD *Reading Physician: Justen Beal MD Indications: Chest Pain, unspecified. SOB. History: D-transposition of the great vessels. Mustard procedure and Norberto-Ruby. Conclusions Summary: - Aortic valve: The aorta and aortic valve are anterior to the pulmonic valve an pulmonary artery c/w the history of D transposition of the great arteries. The right ventricle connects to the aorta and the left ventricle connects to the pulmonary artery. There is trace aortic regurgitation. - Left ventricle: The cavity size is mildly reduced. Wall thickness is normal. Systolic function is mildly reduced. The estimated ejection fraction is 45-50%. Systolic function is worse from the study of June 2016. - Right ventricle: The cavity size is moderately dilated. Wall thickness is mildly to moderately increased. Systolic function is moderately reduced. Overall RV function is worse in comparison with the study of June 2016. - Ventricular septum: There is septal flattening of the interventricular septum consistent with RV volume or pressure overload. - Left atrium: Not well visualized. Linear density in the left atrium c/w h/o Mustard procedure and baffle placement. The atrium is mildly dilated. - Right atrium: The atrium is mildly to moderately dilated. - Tricuspid valve: There is moderate regurgitation. - Pulmonic valve: There is mild regurgitation. - The patient was in atrial flutter during study; he was in nsr during the prior study of 2016. Study data: Transthoracic echocardiogram. Procedure: Transthoracic echocardiography was performed. Image quality was fair. Complete 2D, spectral Doppler, and color flow Doppler. Location: ICU Patient status: Inpatient. Patient room number: 9. Comparison is made to the study of June 2016. Rhythm: Atrial fibrillation. Findings Left ventricle: The cavity size is mildly reduced. Wall thickness is normal. Systolic function is mildly reduced. The estimated ejection fraction is 45-50%. Systolic function is worse from the study of June 2016. Wall motion is normal; there are no regional wall motion abnormalities. Left ventricular diastolic function parameters are indeterminate. Right ventricle: The cavity size is moderately dilated. Wall thickness is mildly to moderately increased. Systolic function is moderately reduced. Overall RV function is worse in comparison with the study of June 2016. Ventricular septum: There is septal flattening of the interventricular septum consistent with RV volume or pressure overload. Left atrium: Not well visualized. Linear density in the left atrium c/w h/o Mustard procedure and baffle placement. The atrium is mildly dilated. Right atrium: The atrium is mildly to moderately dilated. Mitral valve: The leaflets are normal thickness. There is no evidence of stenosis. There is no significant regurgitation. Aortic valve: The valve is trileaflet. The leaflets are normal thickness. There is no evidence of stenosis. The aorta and aortic valve are anterior to the pulmonic valve an pulmonary artery c/w the history of D transposition of the great arteries. The right ventricle connects to the aorta and the left ventricle connects to the pulmonary artery. There is trace aortic regurgitation. Tricuspid valve: The leaflets are normal thickness. There is no evidence of stenosis. There is moderate regurgitation. Pulmonic valve: The leaflets are normal thickness. There is no evidence of stenosis. There is mild regurgitation. Aorta: Aortic root: The aortic root is poorly visualized. Aortic arch: The aortic arch is appears normal. Pericardium: There is no significant pericardial effusion. Pulmonary arteries: Not well visualized. Systemic veins: Inferior vena cava: The vessel is normal in size. There is (< 50%) respiratory change in the IVC dimension. Measurements Left ventricle Value Ref Right atrium Value Ref MARQUISE, LAX 4.3 cm 4.2 - SI dim, ES (H) 6.0 cm 3.4 - 5.3 5.8 ML dim, ES, A4C (H) 4.8 cm 2.6 - 4.4 ESD, LAX 2.8 cm 2.5 - 4.0 Aortic valve Value Ref FS, LAX 36 % 25 - 43 Peak v, S 0.9 m/sec --------- PW, ED, LAX 1.0 cm 0.6 - VTI, S 23.7 cm --------- 1.0 Mean grad, S 3.0 mm Hg --------- EF 66 % 52 - 72 Peak grad, S 3.0 mm Hg --------- E', lat sky, TDI 14.4 cm/sec >=10.0 LVOT/AV, VTI ratio 0.72 -- ------- E', med sky, TDI (L) 6.1 cm/sec >=7.0 E', avg, TDI 10.3 cm/sec ------- Pulmonic valve Value Ref Peak v, S 0.73 m/sec --------- LVOT Value Ref Peak grad, S 2.0 mm Hg --------- Peak obdulio, S 0.7 m/sec ------- VTI, S 17.0 cm ------- Tricuspid valve Value Ref Peak grad, S 2 mm Hg ------- Peak E 0.58 m/sec --------- Mean grad, S 1 mm Hg ------- TR peak v (H) 4.4 m/sec <=2.8 Peak RV-RA grad, S 77 mm Hg --------- Ventricular septum Value Ref IVS, ED 0.7 cm 0.6 - Aortic arch Value Ref 1.0 Arch diam 3.2 cm --------- Right ventricle Value Ref Decending aorta Value Ref MARQUISE, LAX 3.8 cm ------- Bryan peak obdulio 0.9 m/sec --------- MARQUISE minor ax, A4C (H) 5.0 cm 1.9 - mid 3.5 Inferior vena cava Value Ref Diam 1.7 cm --------- RVOT Value Ref Peak v, S 0.7 m/sec ------- VTI, S 13.0 cm ------- Peak grad, S 2 mm Hg ------- Mean grad, S 1 mm Hg ------- Left atrium Value Ref ML dim, A4C 3.6 cm ------- SI dim, A4C 5.7 cm ------- Legend: (L) and (H) karma values outside specified reference range. Prepared and electronically signed by Justen Hanley MD 02/16/2019 11:03
[2019-02-16 11:27] LABS: Digoxin 3.4 ng/ml (0.8-2.0)
[2019-02-16 11:53] LABS: Folate 13.24 ng/mL (>3.99)
[2019-02-16 13:10] LABS: C Reactive Protein 8.1 mg/L (<8.01)
[2019-02-16 14:03] VITALS: BP 127/83
--- NOTE | 2019-02-16 14:33 | DS ---
TRANSFER SUMMARY: DATE OF ADMISSION: 02/14/19 DATE OF TRANSFER: 02/16/19 PRIMARY CARE PROVIDER: None. DISPOSITION ON DISCHARGE: Transfer to [facility] for higher level of care including more advanced cardiology familiar with transposition of the great vessels as well as potentially access to electrophysiology. CONDITION ON DISCHARGE: Stable. PRIMARY DIAGNOSES: 1. Newly diagnosed atrial flutter. 2. Transposition of the great vessels, status post repair as an . MEDICATIONS AT THE TIME OF TRANSFER: Include: 1. Acetaminophen 650 every 6 hours as needed. 2. Eliquis 5 mg twice daily. 3. Aspirin 650 mg every 6 hours as needed for chest pain. 4. Citalopram 20 mg in the morning. 5. Diltiazem 5 mg/hour. 6. Atrovent every 4 hours as needed. 7. Xopenex inhaled every 6 hours as needed. 8. Percocet 5/325 one tab every 6 hours as needed. 9. Prednisone 60 mg daily. Home medications include: 1. Citalopram 20 mg in the morning. PERTINENT LABORATORY DATA: Include white blood cell count on presentation 6.7, on the day of discharge 11.7; hemoglobin on presentation 14.7, on discharge 12.6 ; ESR is 8; CRP is 7.6 on presentation, 12.6 on 02/15/19. Troponin I 0.01 at 3 consecutive checks. TSH is 2.53, free T4 is 1.0. BNP 217 on presentation. PERTINENT IMAGIN. CTA of chest and thorax, impression: No pulmonary arterial filling defect to suggest pulmonary embolism. 2. Transthoracic echocardiogram, impression: Summary, aorta and aortic valve are anterior to the pulmonic valve and pulmonary artery consistent with the history of the transposition of the great arteries. Trace aortic regurgitation. Left ventricular cavity size mildly reduced, wall thickness is normal. Systolic function is mildly reduced. Estimated 45% to 50%. Systolic function is worse from the study in June 2016. Right ventricular cavity size is moderately dilated. Wall thickness is mildly to moderately increased. Systolic function is moderately reduced. Overall RV function is worse in comparison of study of June 2016. There is a ventricular septal flattening of the intraventricular septum consistent with RV pressure overload. Left atrium is not well visualized. Linear density in the left atrium consistent with history of Mustard procedure and baffle placement. Moderate TR. CONSULTATIONS OBTAINED DURING HOSPITAL STAY: Cardiology. 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 Of note, the patient has a known left shoulder injury, frequently has left shoulder pain with some movement. The pain appears to migrate, be more substernal, associated with pleuritic component. On presentation, he had a CTA , was negative for pulmonary embolism, however, was noted to be newly in atrial flutter. The rhythm on presentation was difficult to characterize. He did receive adenosine with a definitive diagnosis of atrial flutter. He was started on Eliquis, transferred to our ICU and started on diltiazem drip. His rate was well controlled on diltiazem as well as digoxin, which he received approximately 1 g loading over 02/15/19, however, remained in atrial flutter. In consultation with Cardiology, it was thought best that he undergo a CONY cardioversion as well as further evaluation by slate mixer more familiar with his congenital abnormality and his repair. Dr. Hanley for Cardiology did discuss this care with Cardiology at [facility], who agreed with Dr. Hanley's impression that he will benefit from a CONY cardioversion and further evaluation. Electrophysiology may play a role in the future, however, with patient such as these, the surgeries may preclude electrophysiology intervention and ablation. Additional labs to note include a digoxin level today was supratherapeutic at 3.4 after 1 g load. No additional digoxin was given. Last dose was 02/16/19 at approximately 10 a.m. Of note, the pleuritic nature of the patient's chest pain did raise the concern for pericarditis. His pain did improve on presentation with 1 dose of prednisone 60 mg. He received the second dose of prednisone today on 02/16/19 and it has remained on his MAR. Aspirin p.r.n. for chest pain was started today, however, he has received 0 doses. Careful tips should be given towards continuing NSAIDs, which is thought they were not necessarily due in the setting of newly started Eliquis for atrial flutter. The patient is stable at the time of discharge in atrial flutter, comfortable of 5 mg/hour Cardizem drip, understands transfer, although does have some increased anxiety regarding transfer to new hospital as is appropriate. At followup, please; 1. Evaluation by Cardiology for further intervention, CONY cardioversion and/or EP evaluation. 2. May require further evaluation or workup for future interventions for cardiac stability including cardiac transplant. If that is thought to be needed in his future as it is known that the repair of this congenital heart deformity does not necessarily have a durable effect of the patient's entire life time. 3. No other specific labs or vitals that need followup. [id number]/CPS #: [id number] RAKESH
== END 2019-02-16 13:50 | disposition short-term general hospital (02) ==
LOC: ED 12:56 → MEDTELE 22:38 → ICU 02-15 12:36
PROVIDERS: ADMIT Internal Medicine; ATTEND Internal Medicine
DX: I48.92 Unspecified atrial flutter (principal); R06.02 Shortness of breath; F41.9 Anxiety disorder, unspecified; M25.519 Pain in unspecified shoulder; F17.210 Nicotine dependence, cigarettes, uncomplicated; R07.9 Chest pain, unspecified; F32.9 Major depressive disorder, single episode, unspecified; Z79.899 Other long term (current) drug therapy; Z79.01 Long term (current) use of anticoagulants; R94.31 Abnormal electrocardiogram [ECG] [EKG]
CPT/HCPCS: 36415; 71045; 71275; 80048; 80053; 80162; 80307; 81003; 82607; 82746; 83605; 83735; 83880; 84425; 84439; 84443; 84484; 85025; 85610; 85652; 85730; 86140; 87040; 87641; 93005; 93306; 96361; 96374; 96375; 96376; 99285; A9270-GY; G0378; J0153; J1160; J1885; J3490; J7512; Q9967

== ENCOUNTER 2019-06-03 10:05 | Emergency (ER) | payer OTHER ==
[2019-06-03] MEDS ORDERED: Ondansetron INJ* 2 MG/ML VIAL IV ONE (10:28)
[2019-06-03] MEDS ORDERED: NS 0.9% 1000 ML** 1,000 ML IV ONE (10:28)
--- NOTE | 2019-06-03 10:28 | ED ---
Syncope/Near Syncope - HPI Summary HPI Summary: Patient is a 43 y/o M w/ Hx of transposition of great vessels s/p two surgeries to correct and aflutter who presents to [facility] via EMS with complaints of near- syncope, dizziness, left-sided chest discomfort, fatigue and nausea. Dizziness and nausea onset this morning around 0730. He drank some water and took his daily medications. Afterwards, he felt light-headed and went to the bathroom where he had an episode of diarrhea. He states that he felt near syncopal around 0900/0930 and called EMS. Patient notes that he felt fatigued as well. Vomiting is denied. Some SOB reported as well. Hx of PE and DVT are denied. Home medications and allergies are reviewed. Home Medications Medication Instructions Recorded Confirmed Type Citalopram Hydrobromide 20 mg PO DAILY 06/27/18 06/03/19 History [Citalopram HBr] Digoxin TAB* [Lanoxin TAB*] 0.25 mg PO DAILY 06/03/19 06/03/19 History - History Of Current Complaint Chief Complaint: EDWeakness Time Seen by Provider: 06/03/19 10:15 Hx Obtained From: Patient Onset/Duration: Lasting Hours, Still Present Timing: Hours Context: Other - near syncope Associated Signs And Symptoms: Chest Pain, Diarrhea, Dizzy, Lightheadedness, Shortness Of Breath, Other - positive - nausea, fatigue; negative - vomiting - Allergies/Home Medications Allergies/Adverse Reactions: Allergies Allergy/AdvReac Type Severity Reaction Status Date / Time No Known Allergies Allergy Verified 06/03/19 11:58 Home Medications: Home Medications Citalopram Hydrobromide [Citalopram HBr] 20 mg PO DAILY 06/27/18 [History Confirmed 06/03/19] Digoxin TAB* [Lanoxin TAB*] 0.25 mg PO DAILY 06/03/19 [History Confirmed ] PMH/Surg Hx/FS Hx/Imm Hx Endocrine/Hematology History: Denies: Hx Diabetes Cardiovascular History: Reports: Hx Congenital Heart Disease - transposition of vessels, Other Cardiovascular Problems/Disorders - PVD, possibly PAD Denies: Hx Angina, Hx Coronary Artery Disease, Hx Hypercholesterolemia, Hx Hypertension, Hx Myocardial Infarction, Hx Pacemaker/ICD, Hx Valvular Heart Disease Respiratory History: Reports: Hx Pneumonia, Other Respiratory Problems/ Disorders - PULMONARY HYPERTENSIVE ARTERIAL DISEASE Denies: Hx Asthma, Hx Chronic Obstructive Pulmonary Disease (COPD) History: Denies: Hx Renal Disease Musculoskeletal History: Reports: Hx Arthritis, Hx Back Problems, Hx Orthopedic Injury, Other Musculoskeletal History - tarsal tunnel Sensory History: Denies: Hx Contacts or Glasses, Hx Hearing Aid Opthamlomology History: Denies: Hx Contacts or Glasses Psychiatric History: Reports: Hx Anxiety, Hx Depression, Hx Panic Disorder - Surgical History Surgery Procedure, Year, and Place: 3 TOTAL vein surgery rt leg;. open heart surgery as an infant for transposition of the great vessel & (NO IMPLANTS) ; Hx Anesthesia Reactions: No Infectious Disease History: No Infectious Disease History: Denies: Traveled Outside the [place] in Last 30 Days - Family History Known Family History: Negative: Cardiac Disease - Social History Alcohol Use: Occasionally Alcohol Amount: 3x/wk Substance Use Type: Reports: None Hx Tobacco Use: Yes Smoking Status (MU): Current Every Day Smoker Type: Cigarettes Amount Used/How Often: 1/2 ppd Have You Smoked in the Last Year: Yes Review of Systems Positive: Fatigue Positive: Chest Pain Positive: Shortness Of Breath Positive: Diarrhea, Nausea. Negative: Vomiting Neurological/Mental Status: Other - positive - dizziness, light-headedness Positive: Syncope - NEAR All Other Systems Reviewed And Are Negative: Yes Physical Exam - Summary Physical Exam Summary: Constitutional: Well-developed, Well-nourished, Alert. (-) Distressed but appears fatigued Skin: Warm, Dry; large old surgical scar to the right back HENT: Normocephalic; Atraumatic, dry MM Eyes: Conjunctiva normal Neck: Musculoskeletal ROM normal neck. (-) JVD, (-) Stridor, (-) Tracheal deviation Cardio: Rhythm regular, rate normal, Heart sounds normal; Intact distal pulses; The pedal pulses are 2+ and symmetric. Radial pulses are 2+ and symmetric. (-) Murmur Pulmonary/Chest wall: Effort normal. (-) Respiratory distress, (-) Wheezes, (-) Rales Abd: Soft, (-) tenderness, (-) Distension, (-) Guarding, (-) Rebound Musculoskeletal: (-) Edema Lymph: (-) Cervical adenopathy Neuro: Alert, Oriented x3 Psych: Mood and affect Normal Triage Information Reviewed: Yes Vital Signs On Initial Exam: Initial Vitals Temp Pulse Resp BP Pulse Ox 98.7 F 83 23 133/86 100 06/03/19 10:08 06/03/19 10:08 06/03/19 10:08 06/03/19 10:08 06/03/19 10:08 Vital Signs Reviewed: Yes Procedures - Sedation Patient Received Moderate/Deep Sedation with Procedure: No Diagnostics - Vital Signs Vital Signs Temp Pulse Resp BP Pulse Ox 06/03/19 10:11 81 23 100 06/03/19 10:08 98.7 F 83 23 133/86 100 - Laboratory Result Diagrams: 06/03/19 11:01 06/03/19 11:01 Lab Statement: Any lab studies that have been ordered have been reviewed, and results considered in the medical decision making process. - Radiology CXR Radiology Interpretation Completed By: Radiologist Summary of Radiographic Findings: IMPRESSION: NO ACTIVE CARDIOPULMONARY DISEASE IS NOTED. THIS REPORT WAS REVIEWED BY ED PHYSICIAN. - EKG 1017 Cardiac Rate: NL - rate of 81 BPM EKG Rhythm: Sinus Rhythm Summary of EKG Findings: EKG showed sinus rhythm with rate of 81 BPM, no ischemic changes. EKG is similar to prior done 02/24/19. ED physician has reviewed and interpreted this EKG. Course/Dx Course Of Treatment: Patient is a 43 y/o M w/ Hx of transposition of great vessels s/p two surgeries to correct and aflutter who presents to [facility] via EMS with complaints of near-syncope, dizziness, left-sided chest discomfort, fatigue and nausea. Dizziness and nausea onset this morning around 0730. He drank some water and took his daily medications. Afterwards, he felt light- headed and went to the bathroom where he had an episode of diarrhea. He states that he felt near syncopal around 0900/0930 and called EMS. Patient notes that he felt fatigued as well. Vomiting is denied. Some SOB reported as well. Hx of PE and DVT are denied. On physical exam, patient is noted to appear fatigued. He has dry mucous membranes and a large old surgical scar to the right back. EKG showed sinus rhythm with rate of 81 BPM, no ischemic changes. EKG is similar to prior done 02/24/19. CXR IMPRESSION: NO ACTIVE CARDIOPULMONARY DISEASE IS NOTED. During ED course, patient received fluids and Zofran 4 mg IV. Bloodwork was obtained and within normal limits with exception of MCH 33, glucose 107, total protein 6.3. First and second trops were negative. Patient was discharged to home and will follow up with PCP. - Diagnoses Provider Diagnoses: Weakness, Pre-syncope Discharge ED - Sign-Out/Discharge Documenting (check all that apply): Patient Departure - discharge - Discharge Plan Condition: Stable Disposition: HOME Patient Education Materials: Weakness (ED) Referrals: Koffi Blas MD [Primary Care Provider] - 3 Days Additional Instructions: PLEASE RETURN FOR ANY NEW OR CONCERNING SYMPTOMS. PLEASE FOLLOW UP WITH YOUR PRIMARY CARE PHYSICIAN WITHIN THREE DAYS. - Billing Disposition and Condition Condition: STABLE Disposition: Home - Attestation Statements Document Initiated by He: Yes Documenting Scribe: KELLEY ROMERO Provider For Whom He is Documenting (Include Credential): CATA DUBOIS DO [place] Attestation: KELLEY Shaikh scribed for CATA DUBOIS DO on 06/03/19 at 1926. Scribe Documentation Reviewed: Yes Provider Attestation: The documentation as recorded by the KELLEY erazo accurately reflects the service I personally performed and the decisions made by CATA damon DO Status of [place] Document: Viewed
--- OUTSIDE RECORDS SUMMARY | 2019-06-03 11:01 | XMS REPORT ---
:1975 Author Organization [facility] Care Team Providers Name Role Phone Geoffrey Shen Primary Care Physician Unavailable Allergies, Adverse Reactions, Alerts Allergy Code CodeSystem Reaction Severity Criticality Status Start Substance Date Moderate Medications Medication Medication Medication Start Stop Route Dose Status Fill Code CodeSystem Date Date Instructions citalopram 560298 RxNorm 2018-08 oral 20 mg 1 active 1 tablet - tablet once a day once a for 30 day(s) day Problems Problem Name Code CodeSystem Alternate Alternate Start End Status Narrative Code CodeSystem Date Date Depressive [id number] SNOMED-CT Active episode, 5-15 unspecified 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, 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 Nicotine [id number] SNOMED-CT Active dependence, 3-29 unspecified, uncomplicated Panic disorder [id number] SNOMED-CT Active 5-15 Relevant diagnostic tests/laboratory data Narrative No Information Procedures Procedure Code CodeSystem Target Date of Status Service Device Device Device Name Site Procedure Delivery Code Name UID Location Psychotherap [id number] SNOMED-CT () 2018-09-06 complete Mental y, 43 04 d Health- minutes with [address], [id number] Psychotherap [id number] SNOMED-CT () 2018-09-18 complete Mental y, 43 04 d Health- minutes with [address], [id number] [id number] Psychotherap [id number] SNOMED-CT () 2018-10-07 complete Mental y, 43 04 d Health- minutes with [address], [id number] [id number] Psychotherap [id number] SNOMED-CT () 2018-12-10 complete Mental y, 43 04 d Health- minutes with [place] patient [address], [id number] [id number] Psychotherap [id number] SNOMED-CT () 2018-12-24 complete Mental y, 43 04 d Health- minutes with [place] patient [address], [id number] [id number] Office or [id number] SNOMED-CT () 2018 complete Mental other 7 d Health- outpatient [place] visit for [address], established [id number] patient, [id number] which requires at least 2 of these 3 tran components: An expanded problem focused history; An expanded problem focused examination; Medical decision making of low Office or [id number] SNOMED-CT () 2019-02-28 complete Mental other 6 d Health- outpatient [place] visit for [address], established [id number] patient, [id number] which requires at least 2 of these 3 tran components: A problem focused history; A problem focused examination; Straightforw ruchi medical decision making. Counselin Office or [id number] SNOMED-CT () 2018-11-01 complete Mental other 6 d Health- outpatient [place] visit for [address], established [id number] patient, [id number] which requires at least 2 of these 3 tran components: A problem focused history; A problem focused examination; Straightforw ruchi medical decision making. Counselin SNOMED-CT () 2018-07-24 complete Mental d Health- [address], [id number] [phone] SNOMED-CT () 2018-08-06 complete Mental d Health- [address], [id number] [phone] SNOMED-CT () 2018-08-14 complete Mental d [address], [id number] [phone] Encounters/Encounter Diagnoses Encounter Name Encounter Diagnosis Diagnosis Diagnosis Date of Service Code Code Name CodeSystem Diagnosis Delivery Location - 92110 [id number] Panic SNOMED-CT 2019-02-28 Behavioral Established disorder Health patient [address] [place], [place], [id number] Vital Signs No Information Social History Element Description Description Start End Code CodeSystem AdditionalInfo Date Date SexAssignedAtBirth Male 1976-0 M AdministrativeGender 12-30 Hospital Discharge Instructions Reason For Referral Medical Equipment FDA Assessments
[2019-06-03 11:05] LABS: Influenza A Molecular Negative (Negative); Influenza B Molecular Negative (Negative)
[2019-06-03 11:17] LABS: ABS Eosinophils 0.1 10^3/ul (0-0.6); ABS Lymphocytes 1.2 10^3/ul (1.0-4.8); ABS Monocytes 0.5 10^3/ul (0-0.8); ABS Neutrophils 2.3 10^3/ul (1.5-7.7); Eosinophil % 2.4 %; Hematocrit 42 % (42-52); Hemoglobin 14.8 g/dL (14.0-18.0); Lymphocyte % 28.6 %; Mean Corpuscular HGB Conc 35 g/dL (31-36); Mean Corpuscular Hemoglobin 33 pg (27-31); Mean Corpuscular Volume 94 fL (80-94); Mean Platelet Volume 7.5 fL (7.4-10.4); Nucleated Red Blood Cells % 0.2; Platelet Count 238 10^3/uL (150-450); Red Blood Count 4.52 10^6 /uL (4.18-5.48); Red Cell Distribution Width 13 % (10-15); White Blood Count 4.1 10^3/uL (3.5-10.8)
[2019-06-03 11:30] LABS: Troponin I 0.01 ng/mL (<0.03)
[2019-06-03 11:33] LABS: Albumin 4.1 g/dL (3.2-5.2); Albumin/Globulin Ratio 1.9 (1-3); BUN/Creatinine Ratio 12.9 (8-20); EGFR African American 117.9 (>60); EGFR Non-African American 97.5 (>60); Globulin 2.2 g/dL (2-4); Potassium 4.6 mmol/L (3.5-5.0); Total Bilirubin 0.5 mg/dL (0.2-1.0); Total Protein 6.3 g/dL (6.4-8.9)
[2019-06-03 15:21] VITALS: BP 139/74
== END 2019-06-03 15:21 | disposition home or self-care (01) ==
LOC: ED 10:05
DX: R53.1 Weakness (principal); R55 Syncope and collapse; R07.9 Chest pain, unspecified; R19.7 Diarrhea, unspecified; R42 Dizziness and giddiness; R06.02 Shortness of breath; F41.9 Anxiety disorder, unspecified; F32.9 Major depressive disorder, single episode, unspecified; F17.210 Nicotine dependence, cigarettes, uncomplicated; Z79.899 Other long term (current) drug therapy
CPT/HCPCS: 36415; 71045; 80053; 83605; 84484; 85025; 93005; 96361; 96374; 99283; J2405